=== PATIENT | male | born 2000 | race Hispanic/Latino ===

== ENCOUNTER 2024-03-07 18:01 | Inpatient (IN) | payer OTHER, SELFPAY ==
[2024-03-07] VITALS (11 sets, daily range): BP systolic 122–152; BP diastolic 90–110; BMI 34.3
--- NOTE | 2024-03-07 14:04 | ED.GENMED ---
History of Present Illness
General
Chief Complaint: Abdominal Symptoms
Source: patient
Exam Limitations: none
Time Seen by Provider: 03/07/24 13:59
History of Present Illness
History of Present Illness:
See MDM
Past History
Past History
ED Past Medical History: None
ED Past Surgical History: None
Social History
Tobacco: Non-smoker
Alcohol: None
Phy Exam
Physical Exam
Physical Exam:
See MDM
Course
Orders/Labs/Results
Orders:
Orders
03/07/24 13:53
Electrocardiogram (*1) Urgent
Reason for Study: Tachycardia
EKG- Treatment ONCE
03/07/24 14:02
CT Abd/pelvis W Iv Cont Urgent
Comment:
Reason For Exam: epigastric pain, vomiting
0.9% Sodium Chloride 1000 ml [Nss] 1,000 ml IV BOLUS
Ketorolac [Toradol] 30 mg IV NOW STA
Ondansetron Injectable [Zofran] 4 mg IV NOW STA
03/07/24 14:15
Complete Blood Count/With Diff Urgent
03/07/24 15:16
Basic Metabolic Panel Urgent
Lipase Urgent
03/07/24 16:04
0.9% Sodium Chloride 1000 ml [Nss] 1,000 ml IV BOLUS
03/07/24 16:05
Bedside Glucose- Treatment Q1H
IV Insert/Care/Rem.- Treatment PRN
Insulin Human Regular [Novolin R] 8 units IV NOW STA
03/07/24 16:08
Basic Metabolic Panel Q2H
03/07/24 18:15
Basic Metabolic Panel Q2H
03/07/24 20:15
Basic Metabolic Panel Q2H
Abnormal Lab Results
03/07/24 03/07/24 03/07/24
14:15 15:16 16:08
WBC 15.4 H 10^3/uL
(4.8-10.8)
RBC 6.29 H 10^6/uL
(4.70-6.10)
MCV 79.5 L fL
(80.0-94.0)
MPV 12.5 H fL
(7.4-10.4)
Abs Immat Gran (auto) 0.1 H 10^3/uL
(0-0.05)
Absolute Neuts (auto) 13.5 H 10^3/uL
(1.4-6.5)
Neutrophils % 87.3 H %
(42.2-75.2)
Lymphocytes % 8.3 L %
(20.5-51.1)
Carbon Dioxide 17 L mmol/L 19 L mmol/L
(22-30) (22-30)
BUN 25 H mg/dl 25 H mg/dl
(9-20) (9-20)
Creatinine 1.4 H mg/dL 1.5 H mg/dL
(0.7-1.3) (0.7-1.3)
Glucose 851 H* mg/dl 814 H* mg/dl
(70-99) (70-99)
Lipase > 4000 H* U/L
(23-300)
POC Glucose > 600 H* mg/dl
(70-99)
03/07/24 14:15
Vital Signs
Initial and Last Documented VS:
Initial Vital Signs
Temp Pulse Resp BP Pulse Ox
98.1 F 145 18 152/99 99
03/07/24 13:47 03/07/24 13:47 03/07/24 13:47 03/07/24 13:47 03/07/24 13:47
Last Documented Vital Signs
Temp Pulse Resp BP Pulse Ox
98.1 F 112 18 137/92 95
03/07/24 13:47 03/07/24 15:15 03/07/24 13:47 03/07/24 15:00 03/07/24 15:15
MDM/Problems Addressed
Differential Diagnosis Includes:
HPI and MDM Narrative:
23-year-old male presenting with mid upper abdominal pain since yesterday. He denies fevers. He is complaining of nausea and vomiting. He denies alcohol use. On exam, patient does have point tenderness in his epigastric region. Will give
Toradol and Zofran obtain CT to rule out intra-abdominal pathology
Physical exam
General: Mildly uncomfortable
HEENT: protecting airway. Dry mucous membranes
Neck: appears supple
CV: No evidence of cyanosis. Tachycardic
Resp: No accessory muscle use
Abd: Non-distended. Epigastric tenderness without rebound
Extremities: No deformities
Neuro: alert
Psych: Normal affect
Skin: Intact
Problems Addressed including Acute and Chronic Conditions affecting care:
1. Abdominal pain
Acuity: acute
Prognosis: stable
Details: Will give Toradol. Will obtain CT to rule out any infectious or surgical pathology
2. Nausea and vomiting
Acuity: acute
Prognosis: stable
Details: Will give Zofran and fluids
3. Hyperglycemia
Acuity: acute
Prognosis: stable
Details: Patient found to be new onset diabetes. Bicarb is greater than 13. Will continue IV fluids and give IV push of insulin after potassium level returns
Updates
Lipase greater than 4000. Patient found be hyperglycemic. Will treat as new onset diabetes. Bicarb is greater than 13 making DKA less likely. However, anion gap is elevated. The potassium did hemolyzed. Will hold off on given the insulin
pending the potassium
Case discussed with hospitalist. Will start insulin drip once potassium results
Patient found to have potassium level of 5. Will start insulin drip
Differential Diagnosis (but not limited to): Pancreatitis, gastritis, peptic ulcer disease
Testing considered: Abdominal ultrasound
Drug therapy (if applicable): OTC meds, please see d/c instruction regarding Rx drugs
Amount and/or Complexity of Data Reviewed
Clinical info obtained from: Patient
External data reviewed: N/A
Labs I independently reviewed (but not limited to): Elevated lipase, hyperglycemia
Radiology: The CT scan was personally and independently reviewed. In addition, official CT report reviewed.
Pulse Ox: not hypoxic
EKG independently reviewed: Sinus tachycardia, normal axis, no STEMI
Call Center Operations Manager: Sinus tachycardia
Critical Care: The high probability of a clinically significant, sudden or life threatening deterioration of the endocrine system(s) required my full and direct attention, intervention and personal management. The aggregate critical care time was 33
minutes. This time is in addition to time spent performing reported procedures but includes the following:
[x] Data Review and interpretation
[x] Patient assessment and monitoring of vital signs
[x] Documentation
[x] Medication orders and management
Risk of Complication:
Social Determinants of health: Good social support
Discussed with other providers: Hospitalist
Escalation of Care includes Admit/Obs: Given the hyperglycemia and pancreatitis, will admit
Occasional wrong word or 'sound a like' substitutions may have occurred due to the inherent limitations of voice recognition software. Read the chart carefully and recognize, using context, where substitutions have occurred.
*Critical Care Note
Total Time (30-74mins, 75-104mins- exclusive of procedures): 33 min
ED Attending Note
-
Portions of this chart may have been created with voice recognition software.� Occasional wrong word or��sound alike� substitutions may have occurred due to the inherent limitations of voice recognition software.
Discharge Plan
Departure
Patient Disposition: Admit
Date of Disposition: 03/07/24
Time of Disposition: 16:12
Admit to: Med/Surg
Presentation/result/management discussed w/ accepting MD/DO: Hospitalist
Discharge Problem:
Acute hyperglycemia, Acute pancreatitis
Prescriptions:
No Action
No Current Medications
0
Referrals:
NONE,* [Family Provider] -
Interventions
Interventions:
*Risk Screen - Suicide Last Done: 03/07/24 14:11
*General Assessment Last Done: 03/07/24 14:11
*Neglect/Abuse Screening Last Done: 03/07/24 14:11
ED- Fall Risk Assessment Last Done: 03/07/24 14:11
*ED COVID-19 Vaccine History Last Done: 03/07/24 14:11
RJ-Qqwfan-Nnadqldcio Assessment Last Done: 03/07/24 14:11
Discharge Date and Time
Print Language: PERSIAN
[2024-03-07] MEDS: ZOFRAN 4 MG IV (14:18)
[2024-03-07] MEDS: NSS 1000 IV ×2 (14:18→16:10)
[2024-03-07] MEDS: TORADOL 30 MG IV (14:18)
[2024-03-07 14:20] LABS: % Basophils 0.4 % (0-2); % Eosinophils 0.1 % (0-6); % Immature Granulocytes 0.5 % (0-0.5); % Lymphocytes 8.3 % (20.5-51.1); % Monocytes 3.4 % (1.7-9.3); % Neutrophils 87.3 % (42.2-75.2); Absolute Basophils 0.1 10^3/uL (0-0.2); Absolute Immature Granulocytes 0.1 10^3/uL (0-0.05); Absolute Lymphocytes 1.3 10^3/uL (1.2-3.4); Absolute Monocytes 0.5 10^3/uL (0.1-0.6); Absolute Neutrophils 13.5 10^3/uL (1.4-6.5); Hemoglobin 17.3 g/dL (13.0-18.0); Mean Corp Hgb Conc. 34.6 g/dL (33.0-37.0); Mean Corpuscular Hgb 27.5 pg (27.0-31.0); Mean Corpuscular Volume 79.5 fL (80.0-94.0); Mean Platelet Volume 12.5 fL (7.4-10.4); Nucleated Red Blood Cells % 0 % (-); Platelet Count 287 10^3/uL (130-400); Red Blood Cell Count 6.29 10^6/uL (4.70-6.10); Red Cell Dist. Width 14.1 % (11.5-14.5); White Blood Cell Count 15.4 10^3/uL (4.8-10.8)
[2024-03-07 15:40] LABS: Blood Urea Nitrogen 25 mg/dl (9-20); Calcium 8.4 mg/dl (8.4-10.2); Carbon Dioxide 17 mmol/L (22-30); Chloride 102 mmol/L (98-107); Sodium 142 mmol/L (135-145); eGFR > 60.00
[2024-03-07 16:03] LABS: Glucose 851 mg/dl (70-99)
[2024-03-07 16:04] LABS: Lipase > 4000 U/L (23-300)
[2024-03-07 16:09] LABS: Glucose - Point of Care > 600 mg/dl (70-99)
[2024-03-07 16:38] LABS: Blood Urea Nitrogen 25 mg/dl (9-20); Calcium 8.5 mg/dl (8.4-10.2); Carbon Dioxide 19 mmol/L (22-30); Chloride 100 mmol/L (98-107); Sodium 145 mmol/L (135-145); eGFR > 60.00
[2024-03-07 16:46] LABS: Glucose 814 mg/dl (70-99)
[2024-03-07] MEDS: NOVOLIN R 8 UNITS IV (16:51)
[2024-03-07] MEDS: NOVOLIN R INSULIN INFUSION 100 IV (17:41)
--- NOTE | 2024-03-07 17:51 | HPS.HSE ---
Family Physician
-
Family Physician: * NONE
Chief Complaint
-
polydipsia
History of Present Illness
A 23 year old male who started feeling an excessive sense of thirst from last Monday till today morning. The feeling has gotten progressively worse. He also went to the bathroom to urinate once an hour every single day from last Monday till today
morning from drinking excessive amounts of water. Constantly feels tired. In his words, no matter how much he drank, his lips and throat would feel dry. Today when he woke up, he started to feel pain in his right lower quadrant of his abdomen. The
pain is rated as a 5/10, and has radiated from the right to the left side of his abdomen. Associated with 1 episode of vomiting, patient stated that 'it is a lot of vomiting. Woke his partner up and was then driven to the emergency room. labs in
ED showed Lipase level was over 4000. WBC was elevated. Serum Glucose was 851. Calculated anion gap was 26. Patient was tachycardic. EKG was normal. CT scan of the abdomen showed acute pancreatitis with peripancreatic edema, and hepatomegaly
with diffuse fatty infiltration of the liver.
Medical History
Past Medical History
Past Medical History: Reports None
Past Surgical History: Reports None
Social History
Tobacco: Smoker (6 cigarettes' a day)
Alcohol: Occasional (6 bottles of beer every 2 months)
Drug: None
Personal: Single
Living: With Roomate
Employment: Employed
Family History
Family History: Not pertinent
Allergies / Home Medications
Allergies reflects when Allergies were last updated in [email or web address].
Home Medications with original date entered in [email or web address]
Allergy/Medication List:
Allergies
Allergy/AdvReac Type Severity Reaction Status Date / Time
No Known Allergies Allergy Unverified 03/07/24 13:52
Home Medications
No Meds [No Current Medications] 03/07/24
Review of Systems
-
History Source: Patient
Respiratory: Reports No Symptoms
Cardiac: Reports No Symptoms
Abdomen/GI: Reports Pain (both right and left epigastric region)
: Reports Frequency
Physical Exam
Vital Signs
Vital Signs
Temp Pulse Resp BP Pulse Ox
98.1 F 125 18 133/94 97
03/07/24 13:47 03/07/24 17:45 03/07/24 13:47 03/07/24 17:00 03/07/24 17:45
Physical Exam
General: Obese
HEENT: NormoCephalic and Anicteric
Respiratory: Clear
Cardiac: S1/S2, Regular Rhythm and Tachycardia
GI: Tender (both left and right epigastric region)
Musculoskeletal: No Clubbing, No Cyanosis and No Edema
Neuro: Awake, Alert, Oriented and AO x 3
Laboratory Results
-
03/07/24 14:15
Laboratory Results
Total Bilirubin Cancelled 03/07/24 15:16
AST Cancelled 03/07/24 15:16
ALT Cancelled 03/07/24 15:16
Alkaline Phosphatase Cancelled 03/07/24 15:16
Lipase > 4000 U/L (23-300) H* 03/07/24 15:16
Data Reviewed
-
Lab Data: Labs Reviewed by me and Discussed with Physician
Impression/Plan
-
IMPRESSION:
Diabetic Ketoacidosis:
Non acholic Fatty liver Secondary to diabetic ketoacidosis:
Leucocytosis:
Hypernatremia:
PLAN:
Diabetic Ketoacidosis:
- Patient was having more than a week of polyuria and polydipsia,
- tachycardic- 112
- Serum glucose levels were 851 on admission
- Anion gap calculated is 26
- Beta hydroxybutyrate- 4.62
- Patient transferred to ICU, NPO, started on IV insulin drip, IV fluids- .45% NaCl, pain medications as needed,
- ordered Consult with diabetes management by nurse practitioner, amylase, phosphorus, magnesium, lipase, triglycerides, CMP, CBC, in the a.m.
Acute Pancreatitis:
- CT scan showed extensive peripancreatic edema consistent with acute pancreatitis
- Lipase levels over 4000
- NPO, IV fluids, pain medications ordered
Fatty liver
Secondary to diabetic ketoacidosis
obesity?:
- CT of the abdomen pelvis with contrast showed hepatomegaly with diffuse fatty infiltration of the liver
- Maybe related to his BMI as he is obese with a BMI of 34
- continue to treat the diabetic ketoacidosis, and observe after repeat scan
Leucocytosis:
- wbc is 15.4
- Probably associated with the acute pancreatitis
- continue to observe and follow WBC
Hypernatremia:
- Na levels on admission was 149
- Corrected hypernatremia is 160 taking into account patients hyperglycemia
- Fluids given 0.45
[2024-03-07 18:27] LABS: Glucose - Point of Care 527 mg/dl (70-99)
[2024-03-07 19:00] LABS: B-Hydroxybutyrate 4.62 mmol/L (0.02-0.27); Blood Urea Nitrogen 25 mg/dl (9-20); Calcium 8.7 mg/dl (8.4-10.2); Carbon Dioxide 20 mmol/L (22-30); Estimated Creatinine Clearance 70 ml/min; Magnesium 2.7 mg/dl (1.6-2.3); eGFR > 60.00
[2024-03-07 19:09] LABS: Glucose 643 mg/dl (70-99)
[2024-03-07] MEDS: 0.45% NACL with KCL 20 MEQ 1000 IV ×2 (19:09→23:35)
[2024-03-07 19:15] LABS: Chloride 106 mmol/L (98-107); Potassium 4.6 mmol/L (3.5-5.1); Sodium 149 mmol/L (135-145)
--- NOTE | 2024-03-07 19:15 | PTCARENOTE ---
Received pt from ED RN, pt is Aox3, VSS, ST on monitor, c/o LUQ abdominal pain. Pt received on 8.4units of insulin, protocol changed to ICU DKA protocol where insulin was decreased to 6units based off BG. 1/2 NS w/ 20k infusing at 200ml/hr. Q4hour
BMPs. Lab draws for BG as well. skin is intact. new iv placed, #20 in left wrist.
[2024-03-07 19:45] LABS: Venous Blood Gas B.E. -1.7 mmol/L (-4 to +4); Venous Blood Gas HCO3 22.2 mmol/L (22-27); Venous Blood Gas pCO2 35 mmHg (35-48); Venous Blood Gas pH 7.41 (7.32-7.43); Venous Blood Gas pO2 140 mmHg (30-50)
[2024-03-07 19:55] LABS: INR 1.06; PT 13.8 Sec (11.4-14.6)
[2024-03-07 19:56] LABS: APTT 23.4 Sec (23.4-35.0)
[2024-03-07 19:59] LABS: Blood Urea Nitrogen 23 mg/dl (9-20); Calcium 8.6 mg/dl (8.4-10.2); Carbon Dioxide 18 mmol/L (22-30); Chloride 110 mmol/L (98-107); Estimated Creatinine Clearance 75 ml/min; Glucose 594 mg/dl (70-99); Potassium 4.1 mmol/L (3.5-5.1); Sodium 148 mmol/L (135-145); eGFR > 60.00
[2024-03-07] MEDS: DILAUDID 0.5 MG IV (21:07)
[2024-03-07] MEDS: LOVENOX 40 MG SC (21:07)
[2024-03-07 21:09] LABS: Blood Urea Nitrogen 23 mg/dl (9-20); Calcium 8.6 mg/dl (8.4-10.2); Carbon Dioxide 20 mmol/L (22-30); Chloride 111 mmol/L (98-107); Estimated Creatinine Clearance 81 ml/min; Glucose 506 mg/dl (70-99); Potassium 4.4 mmol/L (3.5-5.1); Sodium 149 mmol/L (135-145); eGFR > 60.00
[2024-03-07 21:59] LABS: Blood Urea Nitrogen 23 mg/dl (9-20); Calcium 8.4 mg/dl (8.4-10.2); Carbon Dioxide 20 mmol/L (22-30); Chloride 111 mmol/L (98-107); Estimated Creatinine Clearance 75 ml/min; Glucose 474 mg/dl (70-99); Potassium 4.5 mmol/L (3.5-5.1); Sodium 149 mmol/L (135-145); eGFR > 60.00
[2024-03-07 22:59] LABS: Blood Urea Nitrogen 23 mg/dl (9-20); Calcium 8.5 mg/dl (8.4-10.2); Carbon Dioxide 21 mmol/L (22-30); Chloride 111 mmol/L (98-107); Estimated Creatinine Clearance 81 ml/min; Glucose 424 mg/dl (70-99); Potassium 4.6 mmol/L (3.5-5.1); Sodium 147 mmol/L (135-145); eGFR > 60.00
[2024-03-08] VITALS (23 sets, daily range): BP systolic 116–150; BP diastolic 75–103; BMI 34.3
[2024-03-08 00:03] LABS: Blood Urea Nitrogen 23 mg/dl (9-20); Calcium 8.5 mg/dl (8.4-10.2); Carbon Dioxide 22 mmol/L (22-30); Chloride 112 mmol/L (98-107); Estimated Creatinine Clearance 81 ml/min; Glucose 389 mg/dl (70-99); Potassium 4.6 mmol/L (3.5-5.1); Sodium 146 mmol/L (135-145); eGFR > 60.00
--- NOTE | 2024-03-08 00:30 | PTCARENOTE ---
Assessment unchanged, Prn medications for abdominal pain, remains on IVF and insulin gtt.
[2024-03-08] MEDS: DILAUDID 0.5 MG IV ×4 (00:39→21:41)
[2024-03-08 00:48] LABS: Glucose - Point of Care 317 mg/dl (70-99)
[2024-03-08 01:46] LABS: Glucose - Point of Care 299 mg/dl (70-99)
[2024-03-08 02:47] LABS: Glucose - Point of Care 297 mg/dl (70-99)
[2024-03-08 03:58] LABS: Glucose - Point of Care 277 mg/dl (70-99)
[2024-03-08 04:01] LABS: Venous Blood Gas B.E. -1.1 mmol/L (-4 to +4); Venous Blood Gas HCO3 24.3 mmol/L (22-27); Venous Blood Gas O2 Sat % 99.6 %; Venous Blood Gas pCO2 42 mmHg (35-48); Venous Blood Gas pH 7.37 (7.32-7.43); Venous Blood Gas pO2 116 mmHg (30-50)
[2024-03-08 04:03] LABS: Hematocrit 54.6 % (39.0-52.0); Hemoglobin 18.6 g/dL (13.0-18.0); Mean Corp Hgb Conc. 34.1 g/dL (33.0-37.0); Mean Corpuscular Hgb 28.1 pg (27.0-31.0); Mean Corpuscular Volume 82.6 fL (80.0-94.0); Mean Platelet Volume 11.8 fL (7.4-10.4); Platelet Count 272 10^3/uL (130-400); Red Blood Cell Count 6.61 10^6/uL (4.70-6.10); Red Cell Dist. Width 13.9 % (11.5-14.5)
[2024-03-08] MEDS: 0.45% NACL with KCL 20 MEQ 1000 IV ×3 (04:34→15:30)
[2024-03-08 04:41] LABS: ALT (SGPT) 56 U/L (0-50); AST (SGOT) 39 U/L (17-59); Albumin 3.2 g/dl (3.5-5.0); Alkaline Phosphatase 143 U/L (38-126); Amylase 942 U/L (30-110); Blood Urea Nitrogen 23 mg/dl (9-20); Calcium 8.2 mg/dl (8.4-10.2); Carbon Dioxide 20 mmol/L (22-30); Chloride 115 mmol/L (98-107); Estimated Creatinine Clearance 81 ml/min; Glucose 332 mg/dl (70-99); Magnesium 2.7 mg/dl (1.6-2.3); Phosphorus 3.1 mg/dl (2.5-4.5); Potassium 4.9 mmol/L (3.5-5.1); Sodium 149 mmol/L (135-145); Total Bilirubin 0.9 mg/dl (0.2-1.3); Total Protein 6.6 g/dl (6.3-8.2); Triglycerides 402 mg/dl (10-149); eGFR > 60.00
[2024-03-08 04:45] LABS: Glucose - Point of Care 299 mg/dl (70-99)
[2024-03-08 04:52] LABS: Lipase > 4000 U/L (23-300)
[2024-03-08] MEDS: LOPRESSOR 2.5 MG IV (05:01)
--- NOTE | 2024-03-08 05:05 | PTCARENOTE ---
Pt with persistent ST 130 and elevated BP, 1x dose 2.5mg metoprolol. HR improved to 108. little improvement in BP.
[2024-03-08 05:48] LABS: Glucose - Point of Care 296 mg/dl (70-99)
[2024-03-08] MEDS: NOVOLIN R INSULIN INFUSION 100 IV (06:30)
[2024-03-08 06:43] LABS: Glucose - Point of Care 283 mg/dl (70-99)
--- NOTE | 2024-03-08 07:35 | PN.DE.MGMTRT ---
Insulin Management
- -
03/08/2024: Diabetes Management Consult.
23 year old male with no PMH, who presented to the ED with progressive polydipsia and polyuria associated with abd pain and vomiting.
Serum Glucose on admission was 851, he was noted for DKA with a GAP if 26 and acute pancreatitis with hepatomegaly and diffuse fatty infiltration of the liver.
Pt was started on DKA protocol and transferred to the ICU for management. AC 13.1%, Cr 1.4-->1.3, eGFR >60.
Pt awake, A/O x3, resting in bed, c/o diffuse abdominal pain. Denies N/V. Able to discuss diabetes plan of care
states he has never been sick or in a hospital. He reports no family hx of diabetes- Dad is and Mom lives out of the [place].
GAP still open and pt remains NPO on DKA protocol with glucose range of 277 to 299 requiring 4 units of insulin/hr.
Will cont current treatment plan with DKA Protocol and closely follow and assess for readiness to transition off drip.
Pt will require extensive diabetes education- Monitor instructions and insulin administration- he is not ready for education today, will attempt on Monday.
Diabetes History
- -
Type of Diabetes: 2 requiring insulin
Pre-Admission Diabetes Regimen
03/07/24 03/07/24 03/07/24
14:15 14:44 15:16
Creatinine Cancelled Cancelled 1.4 H
03/07/24 03/07/24 03/07/24
16:08 18:26 19:36
Creatinine 1.5 H 1.5 H 1.4 H
03/07/24 03/07/24 03/07/24
20:15 20:49 21:36
Creatinine Cancelled 1.3 1.4 H
03/07/24 03/07/24 03/08/24
22:38 23:34 00:00
Creatinine 1.3 1.3 Cancelled
03/08/24 03/08/24
03:51 04:00
Creatinine 1.3 Cancelled
Insulin Pump Settings
IP Diabetes Regimen
03/07/24 03/07/24 03/07/24
14:15 14:44 15:16
Glucose Cancelled Cancelled 851 H*
POC Glucose
03/07/24 03/07/24 03/07/24
16:08 18:26 19:36
Glucose 814 H* 643 H* 594 H*
POC Glucose > 600 H* 527 H*
03/07/24 03/07/24 03/07/24
20:15 20:49 21:36
Glucose Cancelled 506 H* 474 H*
POC Glucose
03/07/24 03/07/24 03/08/24
22:38 23:34 00:00
Glucose 424 H 389 H Cancelled
POC Glucose
03/08/24 03/08/24 03/08/24
00:36 01:35 02:36
Glucose
POC Glucose 317 H 299 H 297 H
03/08/24 03/08/24 03/08/24
03:47 03:51 04:00
Glucose 332 H Cancelled
POC Glucose 277 H
03/08/24 03/08/24 03/08/24
04:34 05:37 06:33
Glucose
POC Glucose 299 H 296 H 283 H
Patient Education
--- NOTE | 2024-03-08 07:39 | CON.INTV ---
Consultation
Consultation Request
Date/Time Consultation Requested: 03/08/2024-7 AM
Date/Time Consultation Performed: 03/08/2024-7 30 AM
Requesting Provider: Hospitalist
Performing Provider: Dr. Gallagher
Reason for Consultation: Pancreatitis/DKA/critical care management
Medical History
-
Chief Complaint: DKA/pancreatitis
History of Present Illness:
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
DKA/pancreatitis/critical care management 03/08/2024. Patient states that he is feeling improved but still thirsty. He has significant abdominal pain as well. Abdominal pain started several days ago. He had 1 episode of emesis. He denies any
shortness of breath, chest pain, chest tightness, mucus, productive cough, and has mild nausea but no emesis since admission. Does not complain of any weakness, or lower extremity swelling.
Past Medical History
Past Medical History: None (Denies any CAD, pulmonary, renal, gastrointestinal or diabetes in the past)
Social History
Tobacco: Former Smoker (Quit 1 month ago)
Alcohol: Occasional (Less than 6 beers monthly)
Drug: None
Living: With [facility]
Occupational Exposures: No known asbestos exposure
Environmental Exposures: No known tuberculosis exposure
Family History
Family History: Reviewed & Not Pertinent
Allergies / Home Medications
Allergies
Allergy/AdvReac Type Severity Reaction Status Date / Time
No Known Allergies Allergy Unverified 03/07/24 13:52
Home Medications
�Medication �Instructions �Recorded �Confirmed �Last Taken �Type
No Meds [No Current Medications] 03/07/24 03/07/24 Unknown History
Review of Systems
-
Unable to Obtain full review of systems at this time due to: Other (Per HPI)
Vitals / Labs / Diagnostic Testing
Vital Signs
Temp Pulse Resp BP Pulse Ox
98.8 F 134 27 120/100 96
03/08/24 01:40 03/08/24 05:01 03/08/24 05:00 03/08/24 05:01 03/08/24 05:00
Lab Data
03/08/24 03:51
03/08/24 04:00
Laboratory Results
03/07/24
19:36
PT 13.8
INR 1.06
APTT 23.4
Diagnostic Testing:
Physical Exam
-
Exam:
Well-nourished and well-developed in no apparent distress
HEENT-atraumatic, normocephalic, thick neck
Neck-supple, no JVD, no bruit
Heart-regular rate and rhythm-no murmurs, rubs or gallops
Chest-clear to auscultation, no wheezes, crackles
Abdomen-soft, mildly distended, epigastric pain with some guarding but no rebound
Extremities-no cyanosis, clubbing, edema and good peripheral pulses
Integument-intact, no rashes, lesions or ecchymosis
Neurology-alert and oriented, nonfocal motor and sensory exam
Assessment
-
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
DKA/pancreatitis/critical care management 03/08/2024.
DKA-initial blood sugar 851, anion gap 23
Severe pancreatitis-lipase greater than 4000, amylase 942
Transaminitis
Hypernatremia
Metabolic acidosis/ketoacidosis
Leukocytosis
Polycythemia-suspect hemoconcentration-hemoglobin 18.6
Obesity-BMI 34
Fatty infiltration of liver
Conditions present prior to admission:
Obesity-BMI 34
Denies any CAD, pulmonary, renal, gastrointestinal or diabetes in the past
Plan
Patient will be admitted to medical intensive care unit
Supplemental oxygen as needed
Aspiration precautions
Incentive spirometry
Nebulizers if needed
NPO
Follow lipase
CT abdomen summarized below
Consider MRI
GI evaluation pending
Analgesia as needed-monitor for oversedation
Follow LFTs
Consider eovjaojckw-gmnwfipzph-xoglldstfp, biliary sludge, periampullary diverticulum, pancreatic or ampullary cancer, ampullary stenosis, duodenal stricture or obstruction
Consider toxic-ethanol, methanol, scorpion venom, organophosphate poisoning, Consider dbhyusapu-ggzmxmcrrhtzzl-berw I, 4, 5, and hypercalcemia, Consider drugs-didanosine, pentamidine, metronidazole, thiazide, tetracycline,stibogluconate,
sulfasalazine, L-aspartate, azathioprine, valproic acid, sulindac, aspirin, calcium, estrogen, Consider jvrpvjwkvv-jgpyvlz-dtswr, coxs[place]ie, CMV, varicella, HSV, HIV, bacterial, fungal or parasitic, Consider trauma-blunt or penetrating, or
iatrogenic during ERCP, Consider congenital, Consider vascular-ischemia, atheroembolic, vasculitis, Consider tckzmpidxaudu-vefr-JZLU, , renal transplantation, alpha-1 antitrypsin deficiency and consider genetic on rare occasions
Fluid qikkaikcavstl-zlmo-hlwujohd therapy
Aggressive fluid resuscitation if tolerated in the first 24-48 hours-can minimize renal ATN
Pressors as needed
Pain control-Meperidine favored over morphine for analgesia as morphine can cause increase in sphincter of Oddi pressure
Monitor blood sugar
Monitor anion gap
Insulin drip
Check A1c if not done in the last 3 months
Diabetic nurse practitioner consultation
Intravenous fluid resuscitation
Monitor potassium closely and replace appropriately
Nutrition-consider TPN
Monitor for infection
Prophylactic antibiotics are not recommended initially unless infection is suspected
Consider Pentoxifyline-Some studies of shown treatment had fewer ICU admissions, and reduced hospital stay
Monitor renal function
Consider nephrology evaluation if worsens
Follow hemoglobin-if remains elevated after euvolemia and consider polycythemia workup
Monitor leukocytosis
Follow LFTs
DVT prophylaxis-on Lovenox
Nutrition once pancreatitis improves, consider TPN
Early mobilization
Eventual outpatient sleep disorder breathing/obstructive sleep apnea workup
Critical care statement: A total of 65 minutes of critical care time was provided for this patient today. This includes management of unstable vital signs, evaluation of the patient at bedside, reviewing the patient's pertinent medical records
including radiographs, microbiology, laboratory evaluations, and discussion with primary team, consultants, pharmacy, charge nurse, critical care nursing, and respiratory therapy.
Diagnostic data:
Chest x-ray 03/07/2024-NAD
CT abdomen and pelvis 03/07/2024-acute pancreatitis with extensive peripancreatic edema, hepatomegaly with diffuse fatty infiltration of the liver, no abnormal pancreatic masses or calcifications, gallbladder was normal
Data Reviewed
-
EKG: Report reviewed by me
Radiology: Report reviewed by me
CT Scan: Report reviewed by me
Labs: Labs reviewed by me
Old Records: Reviewed
Critical Care Time (in minutes): 65
[2024-03-08 07:46] LABS: Glucose - Point of Care 286 mg/dl (70-99)
[2024-03-08 08:47] LABS: Glucose - Point of Care 344 mg/dl (70-99)
--- NOTE | 2024-03-08 09:00 | PTCARENOTE ---
Rec'd care of patient at 0700. Patient alert and oriented. Primarily Albanian speaking, but able to communicate in Beninese. No manager women needed at current time. Vitals stable. Afebrile. ST on tele monitor. Rate in the 120's. Pulse ox 93-94% on RA.
Lung sounds shallow, diminished in b/l base. Tachypneic. C/o pain across entire upper quadrant of abdomen. Firm and tender. +BS in all quadrants (hypoactive). PRN Dilaudid for pain management. Voiding via urinal and bathroom. Ambulating in room
without difficulty. Insulin and IVFs infusing as ordered. Q1hr accuchecks. Orders obtained for Q4 BMP.
[2024-03-08 09:03] LABS: Glycohemoglobin (HgbA1c) 13.1 % (4.0-5.6)
[2024-03-08 09:39] LABS: Glucose - Point of Care 332 mg/dl (70-99)
[2024-03-08 10:06] LABS: Blood Urea Nitrogen 23 mg/dl (9-20); Calcium 7.7 mg/dl (8.4-10.2); Carbon Dioxide 18 mmol/L (22-30); Chloride 116 mmol/L (98-107); Estimated Creatinine Clearance 88 ml/min; Glucose 334 mg/dl (70-99); Potassium 4.9 mmol/L (3.5-5.1); Sodium 146 mmol/L (135-145); eGFR > 60.00
[2024-03-08 10:42] LABS: Glucose - Point of Care 326 mg/dl (70-99)
--- NOTE | 2024-03-08 11:04 | CON.GI ---
Addendum entered and electronically signed by Matthias Smith DO 03/08/24 13:11:
I saw and examined the patient.
The MANUFACTURING MANAGEMENT ASSOCIATE's note was reviewed and I agree with the note.
Comment: This is a 23 y.o male from [facility] with no significant past medical history who presented to the ED with polydipsia, polyuria, subjective chills and acute epigastric abdominal pain found to have DKA and CT imaging with acute pancreatitis
with extensive edema and hepatomegaly. Denied any significant EtOH use or new medications. No prior symptoms like this before in the past or prior episodes of pancreatitis. No family hx of pancreatitis or family history of pancreatic disorders
and/or pancreatic malignancy. Etiology of acute pancreatitis due to DKA and xuwy-yh-hsvileeh elevated TGs (400s) from new-onset diabetes with A1c 13.1%. Much less likely stone/biliary cause as without any stones or sludge on CT but would benefit
from US gallbladder to ensure no stones or sludge. Has received nearly 6L of IVF and further would avoid further aggressive IV fluid resuscitation (as per recent RCT- Waterfall trial) to avoid complications (ie pulmonary edema, abdominal compartment
syndrome, etc). Otherwise, no evidence of complications as without any pseudoaneurysm, leona-pancreatic fluid collections or necrosis.
Recommendations:
- Reduce IVF to 100 cc's per hr to avoid volume overload
- Agree with Insulin gtt for DKA management
- Okay for CLD and may ADAT to low-fat diet once able to tolerate p.o as earlier enteral feedings have been shown to have improved outcomes
- Trend serial LFTs. Obtain viral hepatitis serologies, although suspect mild elevations in transaminases due to MASLD
- Obtain US Gallbladder to r/o stones and/or sludge
- Miralax 17 gm BiD and senna qhs for bowel regimen for prevention of ileus
- Limit opioids as much as possible to prevent further worsening bowel dysmotility
- Consider Endocrinology consultation this admission
- Rest of supportive care as per primary ICU team
Original Note:
Consultation
-
Date/Time Consultation Requested: 03/08/24 0920
Date/Time Consultation Performed: 03/08/24 1030
Requesting Provider: Dr Rubio
Performing Provider: Dr. Smith/TAVO Castro
Reason for Consultation: pancreatitis
Medical History
Chief Complaint / HPI
Chief Complaint: abd pain
History of Present Illness:
23-year-old male from 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
1 week history of polydipsia, frequent urination, sweats, chills and finally acute abdominal pain in the periumbilical region. This pain was associated with nausea and 1 episode of vomiting. The patient was found to have DKA with anion gap 23,
glucose greater than 851, lipase greater than 4000 and triglycerides of 402. Asked to evaluate for pancreatitis. The patient states he has never had any medical issues before. He states that he went up to [facility] last week and started
noticing that he was increasingly thirsty. He started drinking a lot of water at that time as well as increased urination. He developed acute onset of abdominal pain which he points to the periumbilical region and he states that it was 'tight'.
He states he did feel hot so he took 1 Advil. He has never taken this before. He does smoke cigarettes. He drinks approximately 6 beers every 1 to 2 months. The last time he drank any alcohol was approximately 1 month ago. He does not use any
illicit drugs. He denies any tattoos, piercings or IV drug use. He does point to 1 area of branding on his left hand. He denies any family history of GI issues. Including malignancy or pancreatitis. He denies any melena, hematochezia, dysphagia
or odynophagia. No early satiety or unintentional weight loss. His bowel movements are soft formed regular daily. His last bowel movement yesterday and it was light brown. On presentation WBC 15.4 currently 12.0, hemoglobin was 17.3 now 18.6,
platelets 272,, PT 13.8, INR 1.06, sodium 146, potassium 4.9, chloride 116, CO2 18, BUN 23, creatinine 1.2 down from 1.4, glucose 334, calcium 7.7, total bilirubin 0.9, AST 39, ALT 56, alk phos 143, triglycerides 402, amylase 942, lipase greater
than 4000. CT abdomen and pelvis with IV contrast 03/07/2024 shows acute pancreatitis with extensive peripancreatic edema. Hepatomegaly with diffuse fatty liver.
Past Medical History
Past Medical History: None
Past Surgical History: None
Social History
Tobacco: Smoker
Alcohol: Occasional
Drug: None
Personal: Single
Living: With Roomate
Employment: Employed
Family History
Family History: Other (No family history of gastrointestinal malignancy, IBD or pancreatitis)
Allergies / Home Medications
Allergy/AdvReac Type Severity Reaction Status Date / Time
No Known Allergies Allergy Unverified 03/07/24 13:52
�Medication �Instructions �Recorded
No Meds [No Current Medications] 03/07/24
Review of Systems
-
All other systems: A 12 pt ROS was Negative except as stated above in HPI
Vital Signs
Temp Pulse Resp BP Pulse Ox
99.1 F 130 25 119/83 92
03/08/24 07:58 03/08/24 10:00 03/08/24 10:00 03/08/24 10:00 03/08/24 10:00
Physical Exam
Exam
General: Other (Patient appears ill, tachypnea, tachycardia)
HEENT: Anicteric
Respiratory: Clear and Other (Tachypnea)
Cardiac: Regular Rhythm (Tachycardia)
GI: Soft, Normal Bowel Sounds (Hypoactive), Tender (Mild periumbilical tenderness) and Distended
Musculoskeletal: No Edema
Skin: Warm and Dry
Neuro: AO x 3
Psych: Calm
Results
WBC 12.0 10^3/uL (4.8-10.8) H 03/08/24 03:51
Hgb 18.6 g/dL (13.0-18.0) H 03/08/24 03:51
Hct 54.6 % (39.0-52.0) H 03/08/24 03:51
MCV 82.6 fL (80.0-94.0) 03/08/24 03:51
Plt Count 272 10^3/uL (130-400) 03/08/24 03:51
Absolute Neuts (auto) 13.5 10^3/uL (1.4-6.5) H 03/07/24 14:15
PT 13.8 Sec (11.4-14.6) 03/07/24 19:36
INR 1.06 03/07/24 19:36
APTT 23.4 Sec (23.4-35.0) 03/07/24 19:36
Sodium 146 mmol/L (135-145) H 03/08/24 09:13
Potassium 4.9 mmol/L (3.5-5.1) 03/08/24 09:13
Chloride 116 mmol/L (98-107) H 03/08/24 09:13
Carbon Dioxide 18 mmol/L (22-30) L 03/08/24 09:13
BUN 23 mg/dl (9-20) H 03/08/24 09:13
Creatinine 1.2 mg/dL (0.7-1.3) 03/08/24 09:13
Calcium 7.7 mg/dl (8.4-10.2) L 03/08/24 09:13
Total Bilirubin 0.9 mg/dl (0.2-1.3) 03/08/24 03:51
AST 39 U/L (17-59) 03/08/24 03:51
ALT 56 U/L (0-50) H 03/08/24 03:51
Alkaline Phosphatase 143 U/L (38-126) H 03/08/24 03:51
Amylase 942 U/L (30-110) H* 03/08/24 03:51
Lipase > 4000 U/L (23-300) H* 03/08/24 03:51
Diagnostic Image Results:
CT abdomen and pelvis with IV contrast 03/07/2024:
IMPRESSION:
1). Acute pancreatitis with extensive peripancreatic edema
2). Hepatomegaly with diffuse fatty infiltration of the liver
Electronically signed by Grady Mei MD, 03/07/2024 4:11 PM
Prior GI Procedures:
EGD: Never
Colonoscopy: Never
Assessment / Plan
-
23-year-old male from 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
1 week history of polydipsia, frequent urination, sweats, chills and finally acute abdominal pain in the periumbilical region. This pain was associated with nausea and 1 episode of vomiting. The patient was found to have DKA with anion gap 23,
glucose greater than 851, lipase greater than 4000 and triglycerides of 402. Asked to evaluate for pancreatitis. denies any melena, hematochezia, dysphagia or odynophagia. No early satiety or unintentional weight loss. His bowel movements are
soft formed regular daily. His last bowel movement yesterday and it was light brown. On presentation WBC 15.4 currently 12.0, hemoglobin was 17.3 now 18.6, platelets 272, PT 13.8, INR 1.06, sodium 146, potassium 4.9, chloride 116, CO2 18, BUN 23,
creatinine 1.2 down from 1.4, glucose 334, calcium 7.7, total bilirubin 0.9, AST 39, ALT 56, alk phos 143, triglycerides 402, amylase 942, lipase greater than 4000. CT abdomen and pelvis with IV contrast 03/07/2024 shows acute pancreatitis with
extensive peripancreatic edema. Hepatomegaly with diffuse fatty liver. The patient continues on an insulin drip. He has received over 5 L of IV fluids. The patient is tachycardic and tachypneic at this time. He remains in ICU for close
monitoring.
Impression/Plan:
DKA/new Dx DM--as per IM/Linter Tender/Diabetic Management
Pancreatitis
--Triglyceride elevation of 400, however should decrease with insulin gtt. No role for pheresis.
--Will check US abd to r/o gallstones, CT was negative and patient was having sx of DM prior to onset of abd pain
--Need to repeat CBC to ensure that Hgb/Hct is decreasing as this increased from presentation.
--Patient with over 5 L fluid in past 24 hrs, currently at 200 cc hr. With tachycardia, tachypnea and abd distention and O2 sat of 92 would have concern for fluid overload and possible compartment syndrome, will reach out to multiple cut off saw operator to
discuss.
--Add incentive spirometer.
--Strict I&O
--NPO except po meds
--Continue analgesia
--Bowel regimen, Miralax
--CBC, CMP, Lipase, CRP in am
--Further recommendations to be forthcoming
-
-
Thank you for consultation and allowing me to participate in the patient's care. Please call the production painter GI physician during the after hours with any questions or concerns.
--- NOTE | 2024-03-08 11:27 | CM ---
CM reviewed medical records. CM met with patient in room. Of note, patient was on phone with Nellie from [facility].
Patient stated that he does not have a history of any services. He currently is employed but does not have insurance. CM provided patient with written information on [facility] and residency clinic.
CM will follow for needs.
[2024-03-08 11:49] LABS: Glucose - Point of Care 310 mg/dl (70-99)
[2024-03-08 12:44] LABS: Glucose - Point of Care 318 mg/dl (70-99)
[2024-03-08 12:57] LABS: Hematocrit 53.4 % (39.0-52.0); Hemoglobin 17.8 g/dL (13.0-18.0); Mean Corp Hgb Conc. 33.3 g/dL (33.0-37.0); Mean Corpuscular Hgb 27.3 pg (27.0-31.0); Mean Corpuscular Volume 81.8 fL (80.0-94.0); Mean Platelet Volume 12.1 fL (7.4-10.4); Platelet Count 270 10^3/uL (130-400); Red Blood Cell Count 6.53 10^6/uL (4.70-6.10); Red Cell Dist. Width 14.3 % (11.5-14.5); White Blood Cell Count 12.1 10^3/uL (4.8-10.8)
[2024-03-08] MEDS: DILAUDID 1 MG IV ×2 (13:06→17:45)
--- NOTE | 2024-03-08 13:19 | W.PN.UPDATE ---
Update Note
Progress Note Update
Seen and examined by me independently in collaboration with the chief medical physicist.
Lab data and imaging data reviewed.
Addendum as below :
Patient with still persistent abdominal pain. Nauseous and had emesis as well. No diarrhea. No fevers. Denies shortness of breath.
Afebrile. Tachycardic. Blood pressure okay. Oxygenating well on room air.
Abdomen soft with hypoactive bowel sounds and still with exquisite tenderness in the epigastric and upper abdomen area.
chest is clear.
Alert and oriented. No confusion.
New onset of diabetes mellitus presenting with episode of DKA-currently on IV insulin. Await anion gap to be closed. Keep on n.p.o. with sips of clears for now.
Acute pancreatitis of unclear etiology. I doubt this is secondary to DKA. When checked his triglycerides are high but not too high to precipitate pancreatitis-. Based on the history to think alcohol is playing a role. No gallbladder disease.
Consult GI for further evaluation. CW current rate of IV fluids and pain medications.
Scattered fatty liver with elevated triglycerides which I suspect secondary to uncontrolled diabetes mellitus. His hemoglobin A1c is 13.1. Repeat triglycerides once he is on insulin and the sugars are better. Hold on any specific treatments for
triglyceridemia for now.
Watch for complications of acute pancreatitis.
WAYNE RN
Total time spent on today's encounter was 52 minutes which included time spent in counseling the patient regarding diagnosis and treatment plan as listed above, goals of care, and symptom management. Case was discussed with nursing staff,
specialists All labs and imaging personally reviewed by me. Remainder the time spent in detailed review of previous records, lab data, imaging, and other medical provider documentation.
[2024-03-08 13:22] LABS: Blood Urea Nitrogen 22 mg/dl (9-20); Calcium 7.8 mg/dl (8.4-10.2); Carbon Dioxide 23 mmol/L (22-30); Chloride 113 mmol/L (98-107); Estimated Creatinine Clearance 81 ml/min; Glucose 300 mg/dl (70-99); Sodium 148 mmol/L (135-145); eGFR > 60.00
--- NOTE | 2024-03-08 13:30 | PTCARENOTE ---
Patient reassessed around 1230. Minor changes. HR sustaining in the 130's on tele monitor; ST. Increased dose of Dilaudid administered for abdominal pain. HR unimproved with pain relief. Patient remains afebrile. VSS. Engraver Block notified on HR. ABD
US placed by GI.
[2024-03-08 13:44] LABS: Glucose - Point of Care 269 mg/dl (70-99)
[2024-03-08 14:38] LABS: Glucose - Point of Care 242 mg/dl (70-99)
[2024-03-08 15:39] LABS: Glucose - Point of Care 257 mg/dl (70-99)
--- NOTE | 2024-03-08 16:34 | W.PN.HOSP.TC ---
Today's Communication/Plan
-
f/u with GI
continue to monitors patients glucose levels and electrolytes
Assessment / Plan
Assessment / Plan
Diabetic Ketoacidosis:
- Continue on insulin drip and IV fluids (03/08)
- Replete potassium if low (03/08)
- Anion gap is calculated at 15 ( 03/08)
- Hemoglobin A1c is 13.1
- tachycardic- 127
- Patient was having more than a week of polyuria and polydipsia,
- Serum glucose levels were 851 on admission
- Beta hydroxybutyrate- 4.62
- Patient transferred to ICU, NPO, started on IV insulin drip, IV fluids- .45% NaCl, pain medications as needed,
- ordered Consult with diabetes management by nurse practitioner, amylase, phosphorus, magnesium, lipase, triglycerides, CMP, CBC, in the a.m.
Acute Pancreatitis:
- Continue NPO, IV fluids, pain medications ordered (03/08)
- GI consult (03/08)
- Triglycerides are 400 which should decrease with the administration of insulin
- Continue with pain medications
- Watch for signs and symptoms of the complications of acute pancreatitis
- CT scan showed extensive peripancreatic edema consistent with acute pancreatitis
- Lipase levels over 4000 on admission
Fatty liver
Secondary to diabetic ketoacidosis
obesity?:
- CT of the abdomen pelvis with contrast showed hepatomegaly with diffuse fatty infiltration of the liver
- Maybe related to his BMI as he is obese with a BMI of 34
- continue to treat the diabetic ketoacidosis, and observe after repeat scan
Leucocytosis:
- wbc is 12.1 (03/08)- downtrending from admission
- Probably associated with the acute pancreatitis
- continue to observe and follow WBC
Hypernatremia:
- Na levels on admission was 149
- Corrected hypernatremia is 160 on admission taking into account patients hyperglycemia
- Fluids given 0.45
Anticipated Discharge: 24 - 48 hours
Subjective/Interval History
-
Date of Service: March 08, 2024
Patient is still complaining of abdominal epigastric pain. He had 2 episodes of vomiting last night.
Objective Data
-
Labs:
Laboratory Results
03/08/24 03/08/24 03/08/24
03:51 09:13 12:46
WBC 12.1 H
Hgb 17.8
Hct 53.4 H
Plt Count 270
Sodium 149 H 146 H 148 H
Potassium 4.9 4.9 5.0
Chloride 115 H 116 H 113 H
Carbon Dioxide 20 L 18 L 23
BUN 23 H 23 H 22 H
Creatinine 1.3 1.2 1.3
Glucose 332 H 334 H 300 H
Calcium 8.2 L 7.7 L 7.8 L
Total Bilirubin 0.9
AST 39
ALT 56 H
Alkaline Phosphatase 143 H
03/08/24 03/08/24
17:05 21:05
WBC
Hgb
Hct
Plt Count
Sodium Pending Pending
Potassium Pending Pending
Chloride Pending Pending
Carbon Dioxide Pending Pending
BUN Pending Pending
Creatinine Pending Pending
Glucose Pending Pending
Calcium Pending Pending
Total Bilirubin
AST
ALT
Alkaline Phosphatase
Vital Signs:
Vital Signs
Temp Pulse Resp BP Pulse Ox
98.6 F 127 21 141/92 98
03/08/24 15:50 03/08/24 15:00 03/08/24 15:00 03/08/24 15:00 03/08/24 15:00
I&O
03/07/24 03/08/24 03/09/24
06:59 06:59 06:59
Intake Total 8569 / 2873 1795 / 1795
Output Total 425 / 425 225 / 225
Balance 2244 / 2448 1570 / 1570
Review of Systems
-
History Source: Patient
Constitutional: Reports Other (polydipsia)
Abdomen/GI: Reports Abdominal Pain
Physical Exam
-
General: Obese
HEENT: Normocephalic and Anicteric
Respiratory: Clear to Auscultation
Cardiac: Regular Rhythm, S1/S2 and Tachycardic
GI: Tender (Both left and right epigastric region)
Musculoskeletal: No Clubbing, No Cyanosis and No Edema
Neuro: Awake, Alert, Oriented and AO x 3
Data Reviewed
-
Labs: Labs Reviewed by me and Discussed with Physician
[2024-03-08 16:37] LABS: Glucose - Point of Care 255 mg/dl (70-99)
--- NOTE | 2024-03-08 16:45 | PTCARENOTE ---
Assessment unchanged. Patient resting comfortably. VSS. Insulin gtt for DKA protocol and IVFs maintained. NPO. Awaiting ABD US.
[2024-03-08 17:40] LABS: Glucose - Point of Care 277 mg/dl (70-99)
[2024-03-08] MEDS: LOVENOX 40 MG SC (17:45)
[2024-03-08 18:22] LABS: Blood Urea Nitrogen 22 mg/dl (9-20); Calcium 7.4 mg/dl (8.4-10.2); Carbon Dioxide 19 mmol/L (22-30); Chloride 115 mmol/L (98-107); Estimated Creatinine Clearance 88 ml/min; Glucose 280 mg/dl (70-99); Potassium 5.2 mmol/L (3.5-5.1); Sodium 146 mmol/L (135-145); eGFR > 60.00
[2024-03-08 18:41] LABS: Glucose - Point of Care 255 mg/dl (70-99)
[2024-03-08 19:44] LABS: Glucose - Point of Care 231 mg/dl (70-99)
[2024-03-08 20:53] LABS: Glucose - Point of Care 219 mg/dl (70-99)
[2024-03-08 21:46] LABS: Glucose - Point of Care 225 mg/dl (70-99)
[2024-03-08 22:16] LABS: Blood Urea Nitrogen 22 mg/dl (9-20); Calcium 7.3 mg/dl (8.4-10.2); Carbon Dioxide 19 mmol/L (22-30); Chloride 115 mmol/L (98-107); Estimated Creatinine Clearance 88 ml/min; Glucose 275 mg/dl (70-99); Sodium 146 mmol/L (135-145); eGFR > 60.00
[2024-03-08 22:52] LABS: Glucose - Point of Care 239 mg/dl (70-99)
[2024-03-08] MEDS: D5/0.45%NSS with KCL 20 MEQ 1000 IV (22:57)
[2024-03-08] MEDS: CALCIUM GLUCONATE 100 IV (22:57)
[2024-03-08] MEDS: 0.45% NACL with KCL 20 MEQ IV (23:14)
[2024-03-08 23:56] LABS: Glucose - Point of Care 269 mg/dl (70-99)
[2024-03-09] VITALS (24 sets, daily range): BP systolic 122–155; BP diastolic 85–108; BMI 34.9
--- NOTE | 2024-03-09 00:27 | PTCARENOTE ---
Pt aoX3, Sinus tach 130's, bp elevated, FRAME OPERATOR aware. Pt continues on an insulin gtt for DKA. BG <250, IVF fluids changed to by FRAME OPERATOR per protocol. Calcium 7.3, repleted. Repeat BMP at 0200. Abdominal US completed at bedside. Pt had 1 episode of dry
heaving. Continues to have abdominal pain, PRN medications given.
[2024-03-09 00:52] LABS: Glucose - Point of Care 257 mg/dl (70-99)
[2024-03-09 01:48] LABS: Glucose - Point of Care 261 mg/dl (70-99)
[2024-03-09 02:45] LABS: Glucose - Point of Care 274 mg/dl (70-99)
[2024-03-09] MEDS: DILAUDID 0.5 MG IV ×2 (02:50→21:46)
[2024-03-09 03:39] LABS: Blood Urea Nitrogen 21 mg/dl (9-20); Carbon Dioxide 25 mmol/L (22-30); Chloride 113 mmol/L (98-107); Estimated Creatinine Clearance 88 ml/min; Glucose 309 mg/dl (70-99); Potassium 4.5 mmol/L (3.5-5.1); Sodium 147 mmol/L (135-145); eGFR > 60.00
[2024-03-09 03:42] LABS: Glucose - Point of Care 286 mg/dl (70-99)
[2024-03-09 04:50] LABS: Glucose - Point of Care 266 mg/dl (70-99)
[2024-03-09 05:05] LABS: Hemoglobin 16.3 g/dL (13.0-18.0); Mean Corp Hgb Conc. 33.3 g/dL (33.0-37.0); Mean Corpuscular Hgb 28.6 pg (27.0-31.0); Mean Platelet Volume 12.6 fL (7.4-10.4); Platelet Count 213 10^3/uL (130-400); Red Cell Dist. Width 14.1 % (11.5-14.5)
[2024-03-09 05:21] LABS: ALT (SGPT) 37 U/L (0-50); AST (SGOT) 42 U/L (17-59); Albumin 2.5 g/dl (3.5-5.0); Alkaline Phosphatase 109 U/L (38-126); Blood Urea Nitrogen 21 mg/dl (9-20); Carbon Dioxide 22 mmol/L (22-30); Chloride 114 mmol/L (98-107); Estimated Creatinine Clearance 88 ml/min; Glucose 320 mg/dl (70-99); Magnesium 2.3 mg/dl (1.6-2.3); Potassium 5.2 mmol/L (3.5-5.1); Sodium 145 mmol/L (135-145); Total Bilirubin 0.8 mg/dl (0.2-1.3); Total Protein 5.5 g/dl (6.3-8.2); eGFR > 60.00
[2024-03-09 05:33] LABS: Lipase 2797 U/L (23-300)
[2024-03-09] MEDS: D5/0.45%NSS with KCL 20 MEQ 1000 IV (05:39)
[2024-03-09] MEDS: DILAUDID 1 MG IV ×2 (05:45→11:48)
[2024-03-09 06:02] LABS: Glucose - Point of Care 272 mg/dl (70-99)
[2024-03-09] MEDS: NOVOLIN R INSULIN INFUSION 100 IV (06:31)
[2024-03-09 06:51] LABS: Glucose - Point of Care 275 mg/dl (70-99)
--- NOTE | 2024-03-09 07:02 | W.PN.INTV ---
Today's Communication / Plan
Recommendations
Follow lipase
Continue n.p.o.
Decrease IV fluids
Monitor renal function
Replace electrolytes
Insulin drip
Diabetic education
Assessment
-
23-year-old obese male [place] immigrant with no significant past medical history who does not see physicians presented with excessive thirst, dehydration, abdominal pain noted to have DKA and severe pancreatitis-rackman consulted for
DKA/pancreatitis/critical care management 03/08/2024.
DKA-initial blood sugar 851, anion gap 23
A1c on admission 13.1 suggesting longstanding diabetes
Severe pancreatitis-felt secondary to uncontrolled diabetes-lipase greater than 4000, amylase 942
Transaminitis
Hypernatremia
Metabolic acidosis/ketoacidosis
Leukocytosis
Polycythemia-suspect hemoconcentration-hemoglobin 18.6
Obesity-BMI 34
Fatty infiltration of liver
Conditions present prior to admission:
Obesity-BMI 34
Denies any CAD, pulmonary, renal, gastrointestinal or diabetes in the past
Plan
Remains critically ill on insulin drip with severe pancreatitis
Continue supplemental oxygen if needed
Aspiration precautions with head of bed elevation
Incentive spirometry encouraged
Nebulizers if needed-currently not bronchospastic
NPO per gastroenterology
Follow ammmjp-eaudmjwlpe-fyb [id number]
CT abdomen summarized below
Consider MRI
GI evaluation ongoing-correspondence reviewed
Analgesia as needed-monitor for oversedation
Follow LFTs
Consider vlkooxlwoh-jjgzdkpcyi-kluiswelqg, biliary sludge, periampullary diverticulum, pancreatic or ampullary cancer, ampullary stenosis, duodenal stricture or obstruction
Consider toxic-ethanol, methanol, scorpion venom, organophosphate poisoning, Consider eezoyebah-rhmqptgvydnohi-pmdd I, 4, 5, and hypercalcemia, Consider drugs-didanosine, pentamidine, metronidazole, thiazide, tetracycline,stibogluconate,
sulfasalazine, L-aspartate, azathioprine, valproic acid, sulindac, aspirin, calcium, estrogen, Consider vnyqcszlpn-gslghuo-ayfsx, coxsackie, CMV, varicella, HSV, HIV, bacterial, fungal or parasitic, Consider trauma-blunt or penetrating, or
iatrogenic during ERCP, Consider congenital, Consider vascular-ischemia, atheroembolic, vasculitis, Consider zadpsczierdbw-nvpa-DBFB, , renal transplantation, alpha-1 antitrypsin deficiency and consider genetic on rare occasions
Fluid resuscitation-begin to decrease IV fluids
Significant third spacing-monitor for abdominal compartment syndrome
Aggressive fluid resuscitation as tolerated in the first 24-48 hours-can minimize renal ATN
Pressors as needed
Pain control-Meperidine favored over morphine for analgesia as morphine can cause increase in sphincter of Oddi pressure
Continue to monitor blood sugar
Monitor anion gap-has closed
Insulin drip continues
A1c 13.1
Diabetic nurse practitioner consultation
Intravenous fluid resuscitation
Continue to replace potassium and magnesium
Diabetic education
Nutrition-consider TPN if n.p.o. for extended period time
Monitor for infection
Prophylactic antibiotics are not recommended initially unless infection is suspected
Consider Pentoxifyline-Some studies of shown treatment had fewer ICU admissions, and reduced hospital stay
Continue to monitor renal function
Follow hemoglobin-initially 18.6-if remains elevated after euvolemia and consider polycythemia workup-currently 16.3
Monitor leukocytosis
Follow LFTs
DVT prophylaxis-on Lovenox
Nutrition once pancreatitis improves, consider TPN
Early mobilization
Eventual outpatient sleep disorder breathing/obstructive sleep apnea workup
Critical care statement: A total of 40 minutes of critical care time was provided for this patient today. This includes management of unstable vital signs, evaluation of the patient at bedside, reviewing the patient's pertinent medical records
including radiographs, microbiology, laboratory evaluations, and discussion with primary team, consultants, pharmacy, charge nurse, critical care nursing, and respiratory therapy.
Diagnostic data:
Chest x-ray 03/07/2024-NAD
CT abdomen and pelvis 03/07/2024-acute pancreatitis with extensive peripancreatic edema, hepatomegaly with diffuse fatty infiltration of the liver, no abnormal pancreatic masses or calcifications, gallbladder was normal
Subjective Dataa
Subjective Data
Date of Service:
Date of Service: March 09, 2024
Chief Complaint: Aviation Electronic Warfare Operator Follow Up and Pulmonary Follow Up
Subjective:
Feels better, occasional abdominal pain-controlled, no shortness of breath at rest lying flat, productive cough
Review of Systems
General: Other (Per HPI)
Objective Data
Data Reviewed
Vital Signs / I&O / Oxygen:
Vital Signs
Temp Pulse Resp BP Pulse Ox
98.8 F 128 21 149/102 95
03/08/24 23:47 03/09/24 03:00 03/09/24 03:00 03/09/24 02:00 03/09/24 03:00
Intake and Output
03/08/24 03/09/24 03/10/24
06:59 06:59 06:59
Intake Total 2669 / 2873 4047 / 4047
Output Total 425 / 425 550 / 550
Balance 2244 / 2448 3497 / 3497
SaO2 95
Nasal Cannula flow liters per 2
minute
Physical Exam
General: Respiratory Distress (n) and Comfortable
HEENT: Normocephalic, Anicteric and Moist Mucous Membranes
Cardiovascular: Regular Rhythm
Respiratory: Wheeze (n), Crackles (Few basilar), Rhonchi (n), Non-Labored Respirations, Accessory Resp Muscle Use (n) and Stridor (n)
GI: Soft, Distended and Tender (Epigastric)
Neurology: Awake, Alert and No Motor Deficits
Skin: Warm, Good Color, Cyanosis (n) and Jaundice (n)
Labs/Micro/Reports
Lab Data
03/09/24 04:40
[2024-03-09] MEDS: 0.45%NACL 1000 IV ×2 (07:12→17:23)
--- NOTE | 2024-03-09 07:20 | W.PN.GI.CBS2 ---
Today's Communication / Plan
-
Please see assessment and plan for details.
Assessment / Plan
-
1. Pancreatitis: Severe, interstitial, likely secondary to uncontrolled diabetes, with severe hemoconcentration, now overall improved after aggressive IV fluid resuscitation which is now decreased, with improvement in acidosis, hemoconcentration,
lipase. He likely has significant third spacing of fluids, though his abdomen is not tense and is passing flatus. At this point would continue supportive care, IV fluids, glycemic control, and continue n.p.o. for now. If he continues to improve
then likely start clears tomorrow. If has worsening abdominal pain then we will likely repeat CT scan with contrast to evaluate for necrosis.
Subjective
Subjective
Date of Service: March 09, 2024
Patient feeling okay, did have some abdominal pain overnight but overall feels improved, less nausea and vomiting. He is passing flatus, no bowel movements. His IV fluids have been decreased, remains tachycardic. His repeat labs show improvement
in his severe hemoconcentration, glucose, anion gap and lipase.
Objective
Data Reviewed
Laboratory Data:
Laboratory Results
03/09/24 04:40
Laboratory Results
PT 13.8 Sec (11.4-14.6) 03/07/24 19:36
INR 1.06 03/07/24 19:36
APTT 23.4 Sec (23.4-35.0) 03/07/24 19:36
Phosphorus 3.1 mg/dl (2.5-4.5) 03/08/24 03:51
Magnesium 2.3 mg/dl (1.6-2.3) 03/09/24 04:40
Total Bilirubin 0.8 mg/dl (0.2-1.3) 03/09/24 04:40
AST 42 U/L (17-59) 03/09/24 04:40
ALT 37 U/L (0-50) 03/09/24 04:40
Alkaline Phosphatase 109 U/L (38-126) 03/09/24 04:40
Amylase 942 U/L (30-110) H* 03/08/24 03:51
Lipase 2797 U/L (23-300) H* 03/09/24 04:40
Vital Signs and I&O:
Vital Signs
Temp Pulse Resp BP Pulse Ox
98.8 F 128 21 149/102 95
03/08/24 23:47 03/09/24 03:00 03/09/24 03:00 03/09/24 02:00 03/09/24 03:00
I&O
03/08/24 03/09/24 03/10/24
06:59 06:59 06:59
Intake Total 2669 / 2873 4047 / 4047
Output Total 425 / 425 550 / 550
Balance 2244 / 2448 3497 / 3497
Physical Exam
Physical Exam
General: NAD
Abdomen: Few normal bowel sounds, mildly distended though soft, mild diffuse tenderness, no masses or bruits, no ascites
--- NOTE | 2024-03-09 07:26 | PTCARENOTE ---
Pt potassium 5.2, BG rising with the d5, fluids changed to 1/2NS @100ml/hr. urine out put low, concentrated. Lipase improving. Pt still has diffuse abdominal pain prn medication given with relief. remains on insulin gtt at 4mcg.
[2024-03-09 07:44] LABS: Glucose - Point of Care 310 mg/dl (70-99)
[2024-03-09 08:45] LABS: Glucose - Point of Care 226 mg/dl (70-99)
[2024-03-09 09:44] LABS: Glucose - Point of Care 212 mg/dl (70-99)
[2024-03-09] MEDS: LANTUS 0.1 UNITS SC ×2 (10:48→21:45)
[2024-03-09] MEDS: NOVOLOG FLEXPEN 4 UNITS SC ×3 (10:48→23:40)
[2024-03-09] MEDS: NOVOLOG FLEXPEN-LOW RESISTANCE 2 UNITS SC ×3 (10:49→23:40)
[2024-03-09 11:03] LABS: Glucose - Point of Care 207 mg/dl (70-99)
--- NOTE | 2024-03-09 11:53 | PTCARENOTE ---
~1050 10units SQ Lantus given, pt started on Q6hr standing Novolog and SSI. Insulin gtts dc'd. ~1150 pt c/o abd pain, PRN Dilaudid given.
--- NOTE | 2024-03-09 14:18 | W.PN.UPDATE ---
Update Note
Progress Note Update
Seen and examined by me independently in collaboration with the director of medical staff services.
Lab data and imaging data reviewed.
Addendum as below :
Patient with some improvement in abdominal pain. Still some nausea and an episode of emesis. Passing gas but no bowel movement.
Breathing is okay at rest. He is requiring 2 L of oxygen. No respiratory distress.
Heart sound S1 plus S2 tachycardic.
Chest was clear to auscultation.
Abdomen nondistended hypoactive bowel sounds, soft but tenderness in the upper abdomen but no rebound.
New onset of diabetes mellitus with DKA-anion flap was closed. Transition to subcutaneous insulin. Based on his weight he requires 42 units. Will use Lantus units 10 mg twice a day and NovoLog 4 units every 6 hours and continue with the sliding
scale. Repeat a BMP later this afternoon to make sure he does not slip back into ketoacidosis.
Acute pancreatitis-slight improvement in the pain noted. No evidence of obvious fluid overload or ARDS at this current time. Watch out for ileus. Bowel sounds though hypoactive. Appreciate GI input. Continue with the lower rate of IV fluids
till he is on a diet. Currently on sips of clears. Start on a diet per GI.
Hypertriglyceridemia-repeat as the blood sugars are better .
WAYNE RN
total time spent on today's encounter was 52 minutes which included time spent in counseling the patient/family regarding diagnosis and treatment plan as listed above, goals of care, and symptom management. Case was discussed with nursing staff,
specialists, and care coordinators/case management. All labs and imaging personally reviewed by me. Remainder the time spent in detailed review of previous records, lab data, imaging, and other medical provider documentation.
--- NOTE | 2024-03-09 15:03 | W.PN.HOSP.TC ---
Today's Communication/Plan
-
Keep continue to check patient's serum glucose levels
Assessment / Plan
Assessment / Plan
Diabetic Ketoacidosis:
- Started on 10 units glargine 10 units BID, Insulin aspart 4 units q6h, sliding scale low resistance, d/c insulin drip, watch glucose levels q6h and continue current IV fluids (03/09)
- Possible transition to clear liquids tomm, and currently NPO today
- currently on hydromorphone for pain control (03/09)
- Anion gap is calculated at 9 ( 03/09)
- Glucose level is 275 (03/09)
- Hemoglobin A1c is 13.1
- tachycardic- 127
- Patient was having more than a week of polyuria and polydipsia,
- Serum glucose levels were 851 on admission
- Beta hydroxybutyrate- 4.62
- Patient transferred to ICU, NPO, started on IV insulin drip, IV fluids- .45% NaCl, pain medications as needed,
- ordered Consult with diabetes management by nurse practitioner, amylase, phosphorus, magnesium, lipase, triglycerides, CMP, CBC, in the a.m.
Acute Pancreatitis:
- GI saw patient on 03/08
- Continue NPO, IV fluids, pain medications ordered (03/08)
- Triglycerides are 400 which should decrease with the administration of insulin
- Continue with pain medications
- Watch for signs and symptoms of the complications of acute pancreatitis
- CT scan showed extensive peripancreatic edema consistent with acute pancreatitis
- Lipase levels over 4000 on admission
Fatty liver
Secondary to diabetic ketoacidosis
obesity?:
- CT of the abdomen pelvis with contrast showed hepatomegaly with diffuse fatty infiltration of the liver
- Maybe related to his BMI as he is obese with a BMI of 34
- continue to treat the diabetic ketoacidosis, and observe after repeat scan
Leucocytosis:
- wbc is 12.0(03/09)- downtrending from admission
- Probably associated with the acute pancreatitis
- continue to observe and follow WBC
Hypernatremia:
- Na levels on admission was 149
- Corrected hypernatremia is 160 on admission taking into account patients hyperglycemia
- Fluids given 0.45
Anticipated Discharge: 24 - 48 hours
Subjective/Interval History
-
Date of Service: March 09, 2024
Patient still has slight epigastric abdominal pain and had 1 episode of vomiting last night but overall feels much better.
Objective Data
-
Labs:
Laboratory Results
03/09/24 03/09/24 03/09/24
02:43 04:40 12:00
WBC 12.0 H
Hgb 16.3
Hct 49.0
Plt Count 213 D
Sodium 147 H 145 Cancelled
Potassium 4.5 5.2 H Cancelled
Chloride 113 H 114 H Cancelled
Carbon Dioxide 25 22 Cancelled
BUN 21 H 21 H Cancelled
Creatinine 1.2 1.2 Cancelled
Glucose 309 H 320 H Cancelled
Calcium 8.0 L 8.0 L Cancelled
Total Bilirubin 0.8
AST 42
ALT 37
Alkaline Phosphatase 109
03/09/24 03/09/24
16:00 20:00
WBC
Hgb
Hct
Plt Count
Sodium Cancelled Cancelled
Potassium Cancelled Cancelled
Chloride Cancelled Cancelled
Carbon Dioxide Cancelled Cancelled
BUN Cancelled Cancelled
Creatinine Cancelled Cancelled
Glucose Cancelled Cancelled
Calcium Cancelled Cancelled
Total Bilirubin
AST
ALT
Alkaline Phosphatase
Vital Signs:
Vital Signs
Temp Pulse Resp BP Pulse Ox
98.4 F 119 17 134/99 94
03/09/24 08:00 03/09/24 14:05 03/09/24 14:05 03/09/24 14:05 03/09/24 14:05
I&O
03/08/24 03/09/24 03/10/24
06:59 06:59 06:59
Intake Total 2669 / 2873 4047 / 4201 865 / 865
Output Total 425 / 425 550 / 550 150 / 150
Balance 2244 / 2448 3497 / 3651 715 / 715
Review of Systems
-
History Source: Patient
Abdomen/GI: Reports Pain (epigastric)
Physical Exam
-
General: Obese
HEENT: Normocephalic and Atraumatic
Respiratory: Clear to Auscultation
Cardiac: Regular Rhythm, S1/S2 and Tachycardic
GI: Tender (epigastric)
Musculoskeletal: No Edema
Neuro: Awake, Alert, Oriented and AO x 3
Data Reviewed
-
Labs: Labs Reviewed by me and Discussed with Physician
[2024-03-09 16:20] LABS: Glucose - Point of Care 208 mg/dl (70-99)
[2024-03-09 16:38] LABS: Blood Urea Nitrogen 21 mg/dl (9-20); Calcium 7.9 mg/dl (8.4-10.2); Carbon Dioxide 22 mmol/L (22-30); Chloride 113 mmol/L (98-107); Estimated Creatinine Clearance 89 ml/min; Glucose 256 mg/dl (70-99); Potassium 4.6 mmol/L (3.5-5.1); Sodium 145 mmol/L (135-145); eGFR > 60.00
--- NOTE | 2024-03-09 16:41 | PTCARENOTE ---
Pt stated he was able to sleep awhile this afternoon. Ambulated to bathroom. Bloodwork sent, no changes in assessment.
[2024-03-09] MEDS: LOVENOX 40 MG SC (17:23)
[2024-03-09 21:59] LABS: Glucose - Point of Care 211 mg/dl (70-99)
--- NOTE | 2024-03-09 22:21 | PTCARENOTE ---
2140: Assumed care of the patient. Patient received OOB to chair. Assessed, AAOx3 and able to make his needs known. Complained of 6/10 abdominal pain. Denied feeling nauseated at this time. Pt ambulated to the bathroom. Gait steady. Sinus tachy on
the monitor. All pulses are palpable. Diminished breath sounds. Spo2 at 94% on 2 liter oxygen/ nc. No cough noted. Hypoactive bowel sounds. The patient brushed his teeth. Voids in the toilet and utilizes urinal at the bedside. 0.45 NaCL at 100 ml/hr
via left 20 g AC. Right hand IV is patent. Patient's back in bed. All needs met at this time. Bed in the lowest position. Call don and personal belongings are within reach.
[2024-03-09 23:55] LABS: Glucose - Point of Care 240 mg/dl (70-99)
[2024-03-10] VITALS (14 sets, daily range): BP systolic 123–160; BP diastolic 76–119; BMI 35.1
--- NOTE | 2024-03-10 01:48 | PTCARENOTE ---
Patient reassessed. Sinus tachy on the monitor with HR 125-130. Pt's eyes are closed. RR 22. Unlabored breathing with even chest rise. VARITYPIST made aware and Lopressor 5 mg IV ordered. Pharmacy called twice as medication was not showing up on the pyxis.
Per the Pharmacist, the Pyxis is having issues and they will tube medication to the unit.
[2024-03-10] MEDS: LOPRESSOR 5 MG IV (01:53)
[2024-03-10] MEDS: DILAUDID 0.5 MG IV ×2 (03:59→09:51)
--- NOTE | 2024-03-10 04:01 | PTCARENOTE ---
Patient reassessed. Complains of 6/10 abdominal pain. Patient ambulated to the bathroom. Assisted in bag bath with CHG wipes. Dilaudid administered. SpO2 at 96% on 2L/O2. .No further changes.
[2024-03-10 04:17] LABS: Hemoglobin 14.7 g/dL (13.0-18.0); Mean Corp Hgb Conc. 33.4 g/dL (33.0-37.0); Mean Corpuscular Hgb 28.8 pg (27.0-31.0); Mean Corpuscular Volume 86.1 fL (80.0-94.0); Mean Platelet Volume 12.9 fL (7.4-10.4); Platelet Count 200 10^3/uL (130-400); Red Blood Cell Count 5.11 10^6/uL (4.70-6.10); Red Cell Dist. Width 13.8 % (11.5-14.5); White Blood Cell Count 12.7 10^3/uL (4.8-10.8)
[2024-03-10 04:44] LABS: ALT (SGPT) 33 U/L (0-50); AST (SGOT) 37 U/L (17-59); Albumin 2.6 g/dl (3.5-5.0); Alkaline Phosphatase 110 U/L (38-126); Blood Urea Nitrogen 23 mg/dl (9-20); Calcium 8.1 mg/dl (8.4-10.2); Carbon Dioxide 19 mmol/L (22-30); Chloride 113 mmol/L (98-107); Estimated Creatinine Clearance 97 ml/min; Glucose 242 mg/dl (70-99); Lipase 920 U/L (23-300); Magnesium 2.3 mg/dl (1.6-2.3); Potassium 4.4 mmol/L (3.5-5.1); Sodium 146 mmol/L (135-145); Total Bilirubin 0.7 mg/dl (0.2-1.3); Total Protein 5.4 g/dl (6.3-8.2); Triglycerides 216 mg/dl (10-149); eGFR > 60.00
[2024-03-10] MEDS: 0.45%NACL 1000 IV ×2 (05:52→16:03)
[2024-03-10] MEDS: NOVOLOG FLEXPEN-LOW RESISTANCE 2 UNITS SC ×2 (05:52→11:51)
[2024-03-10] MEDS: NOVOLOG FLEXPEN 4 UNITS SC (05:53)
[2024-03-10 06:05] LABS: Glucose - Point of Care 202 mg/dl (70-99)
--- NOTE | 2024-03-10 07:16 | W.PN.INTV ---
Today's Communication / Plan
Recommendations
Transition insulin drip
Begin clear liquids
Decrease intravenous fluids
Monitor lipase, hemoglobin, LFTs and renal function
If transitioned off insulin drip and could be transferred out of ICU-call pulmonary if respiratory issues arise
Assessment
-
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
DKA/pancreatitis/critical care management 03/08/2024.
DKA-initial blood sugar 851, anion gap 23
A1c on admission 13.1 suggesting longstanding diabetes
Severe pancreatitis-felt secondary to uncontrolled diabetes-lipase greater than 4000, amylase 942
Transaminitis
Hypernatremia
Metabolic acidosis/ketoacidosis
Leukocytosis
Polycythemia-suspect hemoconcentration-hemoglobin 18.6
Obesity-BMI 34
Fatty infiltration of liver
Conditions present prior to admission:
Obesity-BMI 34
Denies any CAD, pulmonary, renal, gastrointestinal or diabetes in the past
Plan
Continues to be critically ill on insulin drip with severe pancreatitis-slowly improving
Continue supplemental oxygen if needed-attempt to wean to room air
Aspiration precautions with head of bed elevation
Incentive spirometry encouraged
Nebulizers if needed-currently not bronchospastic
NPO per gastroenterology-will begin clear liquids today
Follow ahwhzb-jbtnpsayna-sxwrvsgpr greater than 4000, then 2797 on 03/09/2024 and today 03/10/2020 4-920
CT abdomen summarized below
GI evaluation ongoing-correspondence reviewed-reviewed with them-no immediate reimaging needed-at risk for necrotizing pancreatitis
Analgesia as needed-monitor for oversedation
Monitor LFTs
Unclear etiology of pancreatitis-has been case reports of longstanding uncontrolled diabetes causing pancreatitis
The following etiologies gppvuwrmda-onraavyuwp-atwzuqxnxi, biliary sludge, periampullary diverticulum, pancreatic or ampullary cancer, ampullary stenosis, duodenal stricture or obstruction
Consider toxic-ethanol, methanol, scorpion venom, organophosphate poisoning, Consider mplqvfdij-lrmctivumecbfs-fkid I, 4, 5, and hypercalcemia, Consider drugs-didanosine, pentamidine, metronidazole, thiazide, tetracycline,stibogluconate,
sulfasalazine, L-aspartate, azathioprine, valproic acid, sulindac, aspirin, calcium, estrogen, Consider xuxialgens-cftdazs-itinq, coxsackie, CMV, varicella, HSV, HIV, bacterial, fungal or parasitic, Consider trauma-blunt or penetrating, or
iatrogenic during ERCP, Consider congenital, Consider vascular-ischemia, atheroembolic, vasculitis, Consider hticlnokrgqis-ifwp-WJTE, , renal transplantation, alpha-1 antitrypsin deficiency and consider genetic on rare occasions
Decrease IV fluids
Significant third spacing-monitor for abdominal compartment syndrome-no evidence for
Aggressive fluid resuscitation as tolerated in the first 24-48 hours-can minimize renal ATN-now fluids have been backed off
Pressors have not been required
Pain control-Meperidine favored over morphine for analgesia as morphine can cause increase in sphincter of Oddi pressure
Continue to follow blood sugar closely
Monitor anion gap-has closed
Insulin drip continues-could likely be transitioned
A1c 13.1
Diabetic nurse practitioner consultation
Intravenous fluid resuscitation
Continue to replace potassium and magnesium
Diabetic education
Nutrition-consider TPN if n.p.o. for extended period time
Monitor for infection
Prophylactic antibiotics are not recommended initially unless infection is suspected
Consider Pentoxifyline-some studies of shown treatment had fewer ICU admissions, and reduced hospital stay
Monitor renal function
Follow hemoglobin-initially 18.6-if remains elevated after euvolemia and consider polycythemia workup- 16.3 on 03/09/2024 and now normalized to 14.7
Monitor leukocytosis
Follow LFTs
DVT prophylaxis-on Lovenox
Nutrition once pancreatitis improves, consider TPN
Early mobilization
Updated multiple family members came to visit
If able to be weaned off insulin drip they could be transferred out of ICU-call pulmonary if respiratory issues arise
Eventual outpatient sleep disorder breathing/obstructive sleep apnea workup
Critical care statement: A total of 42 minutes of critical care time was provided for this patient today. This includes management of unstable vital signs, evaluation of the patient at bedside, reviewing the patient's pertinent medical records
including radiographs, microbiology, laboratory evaluations, and discussion with primary team, consultants, pharmacy, charge nurse, critical care nursing, and respiratory therapy.
Diagnostic data:
Chest x-ray 03/07/2024-NAD
CT abdomen and pelvis 03/07/2024-acute pancreatitis with extensive peripancreatic edema, hepatomegaly with diffuse fatty infiltration of the liver, no abnormal pancreatic masses or calcifications, gallbladder was normal
Subjective Dataa
Subjective Data
Date of Service:
Date of Service: March 10, 2024
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
Subjective:
Feels better, no shortness of breath, chest pain and abdominal pain is improved, slightly hungry
Review of Systems
General: Other (Per HPI)
Objective Data
Data Reviewed
Vital Signs / I&O / Oxygen:
Vital Signs
Temp Pulse Resp BP Pulse Ox
98.1 F 124 22 157/101 94
03/10/24 03:30 03/10/24 01:53 03/09/24 20:00 03/10/24 01:53 03/09/24 20:10
Intake and Output
03/09/24 03/10/24 03/11/24
06:59 06:59 06:59
Intake Total 4047 / 4201 2465 / 2465
Output Total 550 / 550 821 / 821
Balance 3497 / 3651 1644 / 1644
SaO2 94
Nasal Cannula flow liters per 2
minute
Physical Exam
General: Respiratory Distress (n) and Comfortable
HEENT: Normocephalic, Anicteric and Moist Mucous Membranes
Cardiovascular: Regular Rhythm
Respiratory: Wheeze (n), Crackles (Few basilar), Rhonchi (n), Non-Labored Respirations, Accessory Resp Muscle Use (n) and Stridor (n)
GI: Soft, Distended and Tender (Epigastric)
Neurology: Awake, Alert and No Motor Deficits
Skin: Warm, Good Color, Cyanosis (n) and Jaundice (n)
Labs/Micro/Reports
Lab Data
03/10/24 03:39
03/10/24 03:39
--- NOTE | 2024-03-10 07:37 | PTCARENOTE ---
vital signs filed for previous shift from 03/09 @1999- 03/10 @0700.
--- NOTE | 2024-03-10 07:55 | W.PN.GI.CBS2 ---
Today's Communication / Plan
-
Please see assessment and plan for details.
Assessment / Plan
-
1. Pancreatitis: Severe, interstitial, likely secondary to prolonged uncontrolled diabetes, with severe hemoconcentration, now overall improved after aggressive IV fluid resuscitation which is now decreased, with improvement in acidosis,
hemoconcentration, lipase. He likely has significant third spacing of fluids, though his abdomen is not tense and is passing flatus and is significantly improved today. At this point would continue supportive care, IV fluids, glycemic control, and
we will start clear liquids today. If any signs of decompensation would have low threshold for repeat imaging to evaluate for necrosis but will hold on this for now.
Subjective
Subjective
Date of Service: March 10, 2024
Patient overall feeling better, minimal nausea, passing flatus, pain is present though less, no fevers overnight.
Objective
Data Reviewed
Laboratory Data:
Laboratory Results
03/10/24 03:39
03/10/24 03:39
Laboratory Results
PT 13.8 Sec (11.4-14.6) 03/07/24 19:36
INR 1.06 03/07/24 19:36
APTT 23.4 Sec (23.4-35.0) 03/07/24 19:36
Phosphorus 3.1 mg/dl (2.5-4.5) 03/08/24 03:51
Magnesium 2.3 mg/dl (1.6-2.3) 03/10/24 03:39
Total Bilirubin 0.7 mg/dl (0.2-1.3) 03/10/24 03:39
AST 37 U/L (17-59) 03/10/24 03:39
ALT 33 U/L (0-50) 03/10/24 03:39
Alkaline Phosphatase 110 U/L (38-126) 03/10/24 03:39
Amylase 942 U/L (30-110) H* 03/08/24 03:51
Lipase 920 U/L (23-300) H 03/10/24 03:39
Vital Signs and I&O:
Vital Signs
Temp Pulse Resp BP Pulse Ox
98.1 F 124 22 157/101 94
03/10/24 07:00 03/10/24 01:53 03/09/24 20:00 03/10/24 01:53 03/09/24 20:10
I&O
03/09/24 03/10/24 03/11/24
06:59 06:59 06:59
Intake Total 4047 / 4201 2465 / 2465
Output Total 550 / 550 821 / 821
Balance 3497 / 3651 1644 / 1644
Physical Exam
Physical Exam
General: NAD
Abdomen: Few normal bowel sounds, mildly distended though soft, mild epigastric tenderness without rebound, no masses or bruits, no ascites
[2024-03-10] MEDS: LANTUS 0.1 UNITS SC (08:07)
--- NOTE | 2024-03-10 11:12 | PTCARENOTE ---
Rec'd pt at 0700. Pt AAOx3, ambulating in room with assistance d/t IV pole and wire management. Monitor ST. Lungs CTA, dim. Trialed pt off O2. Pox 95% RA, pt requesting to keep 2LNC on for comfort, reapplied, pox 97%. Pt states his abdominal pain
improved. Sitting OOB in recliner chair throughout morning. Pt to start clear liquids, [facility].
[2024-03-10 11:41] LABS: Glucose - Point of Care 216 mg/dl (70-99)
[2024-03-10] MEDS: NOVOLOG FLEXPEN 5 UNITS SC ×2 (11:52→16:06)
--- NOTE | 2024-03-10 14:06 | W.PN.UPDATE ---
Update Note
Progress Note Update
Seen and examined by me independently in collaboration with the medical liaison.
Lab data and imaging data reviewed.
Addendum as below :
Acute pancreatitis -Improving abdominal pain.Less tender abdomen. Improving lipase. GI started him on clear liquids. Follow his intake and wean off IV fluids. With that drop in triglycerides with the glycemic control I doubt hypertriglyceridemia
as etiology. Abdominal imaging shows no evidence of biliary or gallbladder disease.GI following.
So far no signs of ARDS or significant fluid overload.
BS are quite , watch for ileus.Start on bowel regimen.
New onset DM with DKA - resolved DKA - now on SQ basal bolus insulin. Increase the insulin doses today. CM to see regarding coverage cost for insulin.
Tx to med surg.
--- NOTE | 2024-03-10 14:45 | W.PN.HOSP.TC ---
Today's Communication/Plan
-
continue to trend patients glucose levels and continue to observe any changes in his abdominal pain
Assessment / Plan
Assessment / Plan
Diabetic Ketoacidosis:
- Changed insulin from 10- glargine 10 units BID, Insulin aspart 4 units q6h, sliding scale low resistance 5 units, d/c insulin drip, watch glucose levels q6h and discontinue current IV fluids (03/10)
- Transition to clear liquids today (03/10)
- Anion gap is calculated at 14 ( 03/10)
- Glucose level is 242 (03/10)
- ordered oxycodone 5 mg for pain control (03/10)
- Hemoglobin A1c is 13.1
- tachycardic- 127
- Patient was having more than a week of polyuria and polydipsia,
- Serum glucose levels were 851 on admission
- Beta hydroxybutyrate- 4.62
- Patient transferred to ICU, NPO, started on IV insulin drip, IV fluids- .45% NaCl, pain medications as needed,
- ordered Consult with diabetes management by nurse practitioner, amylase, phosphorus, magnesium, lipase, triglycerides, CMP, CBC, in the a.m.
Acute Pancreatitis:
- triglycerides are 216 today (03/10)
- GI saw patient on 03/08
- Continue NPO, IV fluids, pain medications ordered (03/08)
- Watch for signs and symptoms of the complications of acute pancreatitis
- CT scan showed extensive peripancreatic edema consistent with acute pancreatitis
- Lipase levels over 4000 on admission
Fatty liver
Secondary to diabetic ketoacidosis
obesity?:
- CT of the abdomen pelvis with contrast showed hepatomegaly with diffuse fatty infiltration of the liver
- Maybe related to his BMI as he is obese with a BMI of 34
- continue to treat the diabetic ketoacidosis, and observe after repeat scan
Leucocytosis:
- wbc is 12.0(03/09)- downtrending from admission
- Probably associated with the acute pancreatitis
- continue to observe and follow WBC
Hypernatremia:
- Na levels on admission was 149
- Corrected hypernatremia is 160 on admission taking into account patients hyperglycemia
- Fluids given 0.45
Anticipated Discharge: 24 - 48 hours
Subjective/Interval History
-
Date of Service: March 10, 2024
Patient had 1 episode of vomiting last night. Still has abdominal pain. Overall feels much better.
Objective Data
-
Labs:
Laboratory Results
03/10/24
03:39
WBC 12.7 H
Hgb 14.7
Hct 44.0
Plt Count 200
Sodium 146 H
Potassium 4.4
Chloride 113 H
Carbon Dioxide 19 L
BUN 23 H
Creatinine 1.1
Glucose 242 H
Calcium 8.1 L
Total Bilirubin 0.7
AST 37
ALT 33
Alkaline Phosphatase 110
Vital Signs:
Vital Signs
Temp Pulse Resp BP Pulse Ox
98.8 F 110 25 134/76 96
03/10/24 11:00 03/10/24 14:00 03/10/24 14:00 03/10/24 14:00 03/10/24 14:00
I&O
03/09/24 03/10/24 03/11/24
06:59 06:59 06:59
Intake Total 4047 / 4201 2465 / 2565 800 / 800
Output Total 550 / 550 821 / 821
Balance 3497 / 3651 1644 / 1744 800 / 800
Review of Systems
-
History Source: Patient
Abdomen/GI: Reports Vomiting (1 episode) and Pain (epigastric)
Physical Exam
-
General: Obese
Respiratory: Clear to Auscultation
Cardiac: Regular Rhythm, S1/S2 and Tachycardic
GI: Tender (epigastric)
Musculoskeletal: No Edema
Neuro: Awake, Alert, Oriented and AO x 3
Data Reviewed
-
Labs: Labs Reviewed by me and Discussed with Physician
[2024-03-10] MEDS: MIRALAX 17 GRAMS PO (16:04)
[2024-03-10] MEDS: NOVOLOG FLEXPEN-LOW RESISTANCE 3 UNITS SC (16:07)
[2024-03-10 16:18] LABS: Glucose - Point of Care 269 mg/dl (70-99)
[2024-03-10] MEDS: LOVENOX 40 MG SC (17:24)
--- NOTE | 2024-03-10 20:00 | PTCARENOTE ---
Rec'd pt resting on chair, amb in room ad lisa, ST, bp stable, + pulses, skin warm/dry, RA, sat 95, + bowel sounds, tender in abd, requests no pain meds, brando clears, voiding in bathroom
[2024-03-10 21:27] LABS: Glucose - Point of Care 328 mg/dl (70-99)
[2024-03-10] MEDS: LANTUS 0.12 UNITS SC (21:42)
[2024-03-10] MEDS: NOVOLOG FLEXPEN 10 UNITS SC (21:42)
[2024-03-10] MEDS: COLACE 100 MG PO (21:43)
--- NOTE | 2024-03-10 21:47 | PTCARENOTE ---
10 units novolog SC given for accu 328 per order
[2024-03-10] MEDS: ROXICODONE 5 MG PO (22:37)
--- NOTE | 2024-03-10 22:38 | PTCARENOTE ---
oxycodone 5mg po givden for upper abd pain
[2024-03-11] VITALS (8 sets, daily range): BP systolic 122–153; BP diastolic 79–103; BMI 36.4
[2024-03-11] MEDS: 0.45%NACL 1000 IV ×2 (04:38→10:18)
[2024-03-11 05:03] LABS: Hematocrit 37.2 % (39.0-52.0); Hemoglobin 12.5 g/dL (13.0-18.0); Mean Corp Hgb Conc. 33.6 g/dL (33.0-37.0); Mean Corpuscular Hgb 27.4 pg (27.0-31.0); Mean Corpuscular Volume 81.4 fL (80.0-94.0); Mean Platelet Volume 12.5 fL (7.4-10.4); Platelet Count 190 10^3/uL (130-400); Red Blood Cell Count 4.57 10^6/uL (4.70-6.10); Red Cell Dist. Width 13.7 % (11.5-14.5); White Blood Cell Count 11.5 10^3/uL (4.8-10.8)
[2024-03-11 05:17] LABS: Blood Urea Nitrogen 17 mg/dl (9-20); Calcium 8.1 mg/dl (8.4-10.2); Carbon Dioxide 16 mmol/L (22-30); Chloride 111 mmol/L (98-107); Estimated Creatinine Clearance 119 ml/min; Glucose 208 mg/dl (70-99); Potassium 3.7 mmol/L (3.5-5.1); Sodium 143 mmol/L (135-145); eGFR > 60.00
--- NOTE | 2024-03-11 06:59 | PN.DE.MGMTRT ---
Insulin Management
- -
03/11/2024: Diabetes Management F/U:
23 year old male with no PMH, who presented to the ED with progressive polydipsia and polyuria associated with abd pain and vomiting.
Serum Glucose on admission was 851, he was noted for DKA with a GAP if 26 and acute pancreatitis with hepatomegaly and diffuse fatty infiltration of the liver.
Pt was started on DKA protocol and transferred to the ICU for management. AC 13.1%, Cr 1.4-->1.3, eGFR >60.
States he recently migrated from [facility], he is able to communicate and comprehend in [place].
Says he is currently employed with limited income, has no health insurance and lives with his cousin, the only family member in the .
Pt awake, A/O x3, resting in bed, offers no complaints. Able to discuss diabetes mgt.
Pt transitioned off DKA protocol on 03/09 @10:45 to SQ insulin. Noted for persistent Hyperglycemia up to 328 @ HS last night.
03/10 BMP shows mild GAP. 03/11 labs not yet resulted. Fasting and premeal glucose has remained elevated >200, requiring additional corrective insulin.
Will STOP Lantus and NovoLog and start 70/30 mixture due to the prohibitive cost of Lantus/NovoLog.
Pt received extensive diabetes education- Monitor and insulin instructions this AM- see education note.
Diabetes History
- -
Type of Diabetes: 2
Pre-Admission Diabetes Regimen
03/11/24
04:43
Creatinine 0.9
Lab Results
Hemoglobin A1c 13.1 % (4.0-5.6) H 03/08/24 03:51
Insulin Pump Settings
IP Diabetes Regimen
03/10/24 03/10/24 03/10/24
11:37 16:05 21:27
Glucose
POC Glucose 216 H 269 H 328 H
09/23/24
04:43
Glucose 208 H
POC Glucose
Meal type: Lunch
Amount consumed: 80%
Patient Education
[2024-03-11] MEDS: NOVOLOG MIX 70/30 FLEXPEN 15 UNITS SC (07:53)
[2024-03-11] MEDS: COLACE 100 MG PO ×2 (07:54→19:43)
[2024-03-11] MEDS: MIRALAX 17 GRAMS PO (07:54)
[2024-03-11] MEDS: NOVOLOG FLEXPEN-LOW RESISTANCE 1 UNITS SC ×2 (07:54→12:24)
[2024-03-11 08:04] LABS: Glucose - Point of Care 175 mg/dl (70-99)
--- NOTE | 2024-03-11 09:13 | PTCARENOTE ---
Rec'd pt resting on chair, amb in room ad lisa, ST, bp stable, + pulses, skin warm/dry, RA, + bowel mvmt reported by pt, tender in abd, requests no pain meds, brando clears, voiding in bathroom. 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
glucometer. Pt administered insulin with pen without issue.
--- NOTE | 2024-03-11 09:53 | PN.DE ---
Diabetes Education
- -
03/11/2024: Diabetes Education Consult
23 year old male with new onset T2DM diagnosis, A1C of 13.1%. Met with Mr. Marc at bedside for monitor and insulin instructions. States he recently migrated from [facility]. He is Korean speaking but is able to communicate and comprehend in
Sinhala. Says he is currently employed with limited income, has no health insurance and lives with his cousin. Due to cost of testing supplies for the contour meter, instructed pt to obtain a Reli-On glucose monitor from [facility], pt states he will
ask his cousin to get it today if he has time.
He has been provided with the Contour Next Ez glucometer as a backup meter.
Reviewed proper testing technique for obtaining a blood glucose, testing pattern of 3 times a day and expected results as noted in take home education booklet. Discussed action of 70/30 mixture insulin as well as symptoms and treatment of
hypoglycemia.
Aware to check blood glucose before fasting and before his 1st meal of the day and inject insulin in stomach and eat in 10-20 minutes and then again to check his blood sugar before dinner and inject insulin, rotating sites.
He was instructed to store insulin pens that are not in use in the refrigerator. Instructions with good return demonstration using the glucometer and insulin pen were noted and result of 218 mg/dl noted before breakfast. Discussed importance of
checking blood sugars 2-3x/day to assess food/medication effect on his BS. Emphasized need to reduce CHO intake, start physical activity with regular exercise and to lose weight.
Spoke with patient's nurse and provided home pen needles so patient can self inject with nursing supervision.
Pt will need RX for 70/30 mixture insulin as well as pen needles at discharge.
--- NOTE | 2024-03-11 09:54 | W.PN.GI.CBS2 ---
Today's Communication / Plan
-
Improving from a pancreatic standpoint and having bowel function. Tolerating CLD and may advance slowly as tolerated. No indication in repeating abdominal imaging at this time. Rest of care as outlined below.
Assessment / Plan
-
#Moderately, Severe Acute Interstitial Pancreatitis 2/2
#Uncontrolled DM #DKA
#Mildly Elevated TGs
#Hepatic Steatosis likely 2/2 #MASLD
#Obesity
This is a 23 y.o male from [facility] with no significant past medical history who presented to the ED with polydipsia, polyuria, subjective chills and acute epigastric abdominal pain found to have DKA and CT imaging with acute pancreatitis with
extensive edema and hepatomegaly. Denied any significant EtOH use or new medications. No prior symptoms like this before in the past or prior episodes of pancreatitis. No family hx of pancreatitis or family history of pancreatic disorders and/or
pancreatic malignancy. Etiology of acute pancreatitis due to DKA from uncontrolled diabetes and only with chug-jf-kypzkeeq elevated TGs (400s) and A1c 13.1%. Otherwise, no evidence of complications as without any pseudoaneurysm, leona-pancreatic
fluid collections or necrosis on CT imaging. Improving after IV fluid resuscitation without signs or symptoms to suggest decompensation.
CT Abd/pelvis 03/07/24: Acute pancreatitis with extensive peripancreatic edema, hepatomegaly with diffuse fatty infiltration of the liver
Abd US 03/08/24: No sonographic evidence for cholelithiasis or bile duct dilatation, hepatic steatosis
Recommendations:
- Tolerating CLD, may advance slowly as tolerated to low-fat, diabetic diet
- Mild leukocytosis, likely reactive secondary to pancreatitis
- Having bowel function, continue Miralax 17 gm BiD and senna qhs for bowel regimen
- LFTs remain wnl and US without evidence of biliary disease
- Defer further w/u at this time (ie autoimmune, hereditary evaluation, etc) as likely in setting of DKA from uncontrolled diabetes and only mildly elevated TGs
- No longer on insulin gtt, transitioned to insulin for further glycemic control and DM (A1c 13.1%)
- Fortunately, still without signs/symptoms to suggest decompensation and would defer repeat CT imaging at this time
- Rest of supportive care as per primary team
GI team will continue to follow while inpatient.
Subjective
Subjective
Date of Service: March 11, 2024
- No acute events overnight
Resting comfortably in bed, working with nurse and inpatient nursing aide regarding administration of insulin. Otherwise, denies any nausea or vomiting. Still with some abdominal discomfort but notes improvement of symptoms. No fevers or chills. Passing
flatus, had one brown BM early this AM.
Objective
Data Reviewed
Laboratory Data:
Laboratory Results
03/11/24 04:43
03/11/24 04:43
Laboratory Results
PT 13.8 Sec (11.4-14.6) 03/07/24 19:36
INR 1.06 03/07/24 19:36
APTT 23.4 Sec (23.4-35.0) 03/07/24 19:36
Phosphorus 3.1 mg/dl (2.5-4.5) 03/08/24 03:51
Magnesium 2.3 mg/dl (1.6-2.3) 03/10/24 03:39
Total Bilirubin 0.7 mg/dl (0.2-1.3) 03/10/24 03:39
AST 37 U/L (17-59) 03/10/24 03:39
ALT 33 U/L (0-50) 03/10/24 03:39
Alkaline Phosphatase 110 U/L (38-126) 03/10/24 03:39
Amylase 942 U/L (30-110) H* 03/08/24 03:51
Lipase 920 U/L (23-300) H 03/10/24 03:39
Vital Signs and I&O:
Vital Signs
Temp Pulse Resp BP Pulse Ox
98.2 F 84 16 135/87 95
03/11/24 07:20 03/11/24 07:20 03/11/24 07:20 03/11/24 07:20 03/10/24 22:48
I&O
03/10/24 03/11/24 03/12/24
06:59 06:59 06:59
Intake Total 2465 / 2565 2540 / 2640 300 / 300
Output Total 821 / 821 1100 / 1100
Balance 1644 / 1744 1440 / 1540 300 / 300
Physical Exam
Physical Exam
HEENT: Anicteric and Moist mucous membranes
Cardiology: Normal Sinus Rhythm
Pulmonary: Clear
GI: Soft, Distended, Non Tender and Other (Hypoactive bowel sounds)
Extremities: Warm
Neuro: Non Focal
[2024-03-11 11:03] LABS: Blood Urea Nitrogen 16 mg/dl (9-20); Calcium 8.1 mg/dl (8.4-10.2); Carbon Dioxide 17 mmol/L (22-30); Chloride 110 mmol/L (98-107); Estimated Creatinine Clearance > 125 ml/min; Glucose 179 mg/dl (70-99); Potassium 3.6 mmol/L (3.5-5.1); Sodium 143 mmol/L (135-145); eGFR > 60.00
[2024-03-11 12:35] LABS: Glucose - Point of Care 157 mg/dl (70-99)
[2024-03-11] MEDS: NOVOLIN R INSULIN INFUSION 100 IV (14:07)
[2024-03-11] MEDS: D5/0.45%NSS with KCL 20 MEQ 1000 IV ×3 (14:13→23:45)
[2024-03-11 14:18] LABS: Glucose - Point of Care 166 mg/dl (70-99)
--- NOTE | 2024-03-11 14:40 | PTCARENOTE ---
Insulin gtt restarted due to widening anion gap. IVF changed as ordered. Pt OOB in chair without complaints at this time. Tolerating clear liq tray.
[2024-03-11 15:18] LABS: Glucose - Point of Care 277 mg/dl (70-99)
--- NOTE | 2024-03-11 15:35 | CM ---
CM met with pt and two cousins bedside
Pt continues to work with equity holder
Pt in agreement with changing pharmacy [facility] to lower cost DM supplies
Updated on chart
Pt provided [facility] brochure in Telugu per request
Pt started calling for intake while CM bedside
Cousins to assist with intake clinic call
Discharge Disposition- home with DM meds and supplies through [facility] and follow up with [facility]
[2024-03-11 16:16] LABS: Glucose - Point of Care 274 mg/dl (70-99)
[2024-03-11 17:10] LABS: Blood Urea Nitrogen 14 mg/dl (9-20); Calcium 7.9 mg/dl (8.4-10.2); Carbon Dioxide 20 mmol/L (22-30); Chloride 108 mmol/L (98-107); Estimated Creatinine Clearance > 125 ml/min; Glucose 300 mg/dl (70-99); Potassium 3.6 mmol/L (3.5-5.1); Sodium 140 mmol/L (135-145); eGFR > 60.00
[2024-03-11 17:16] LABS: Glucose - Point of Care 272 mg/dl (70-99)
--- NOTE | 2024-03-11 17:16 | W.PN.HOSP.TC ---
Addendum entered and electronically signed by Gabrielle Cochran MD 03/11/24 18:49:
I saw and evaluated the patient independently. I reviewed the resident�s note and agree with findings and plan as documented by Dr. Taylor.
GENERAL: well developed, well nourished, male in no apparent distress
HEENT: NC/AT--no O2 requirements
HEART: regular rate and rhythm, +S1, +S2
LUNGS : clear to auscultation bilaterally
ABDOM: soft, tender in midepigastric area, distended, decreased bowel sounds
EXT: no cyanosis, clubbing, or edema
NEUROLOGIC: grossly intact
Diabetic Ketoacidosis--new onset DM with HGB A1C 13.1--was on insulin drip with closed AGAP BUT as of this AM, gap has re-opened--stop all SQ insulin and return patient to insulin drip with IVF to include dextrose if needed--back to NPO--apprec
geophysical computer and GI input--apprec DM AUDIO VISUAL COORDINATOR --follow Q4H BMP with repletion of electrolytes as needed
Acute Pancreatitis--US without gallstones, no significant ETOH use (6 beers every 2 months)--triglycerides not high enough to cause pancreatitis--not on meds--apprec GI--back to NPO/IVF with increased AGAP--- CT scan showed extensive peripancreatic
edema consistent with acute pancreatitis--Lipase levels over 4000 on admission--will try to advance diet to low fat once DKA resolved
Fatty liver --likely due to diet and DM--needs diet education
Leukocytosis--likely reactive-- wbc is downtrending from admission
Hypernatremia--- Corrected hypernatremia was 160 on admission taking into account patients hyperglycemia--improved with IVF and DKA treatment
DVT proph
code status -- FULL CODE
Total Critical Care Time 35 minutes. I was immediately available to the patient and staff. I personally examined, reviewed labs, diagnostic images/reports, interpretations, treatment plans, discussed patient care with other providers and family
or caregivers (if patient is unable to make decisions), entered orders as appropriate and documented the medical record.
Original Note:
Today's Communication/Plan
-
NPO
Restart Iv fluids
restart insulin drip
monitor anion gap
Assessment / Plan
Assessment / Plan
IMPRESSION
A 23y/M with working diagnosis of DKA/ Acute Pancreatitis. Still in acidosis with increased anion gap(16).
ASSESSMENT
DKA
ACUTE PANCREATITIS
HYPERNATREMIA
ANION GAP METABOLIC ACIDOSIS
LEUKOCYTOSIS
PLAN
#1 DIABETIC KETOACIDOSIS
IcD9f=21.1
Admitted with glucose level of 851, anion gap of 14, hba1c of 13
glucose today 208, anion gap calculated to be 16
discontinue subcutaneous insulin
restart iv insulin drip
restart iv fluids
keep patient npo, hold clear liquids
monitor cmp 4 hourly
Goal is to close the anion gap and bring the patient out of acidosis
For pain patient is on Hydromorphone and oxycodone
watch glucose levels
#2 Acute Pancreatitis
On admission Lipase 4000, 03/10/[address] scan showed pancreatic edema and fatty liver(03/07)
ultrasound showed no evidence of gallstones(03/08)
patient drinks 6 beers/2months
Passing gas and had bowel movements today
lfts WNL
gastroenterology has impression that it could be due to uncontrolled dka/obesity(bmi 34)
KEEP PATIENT NPO
#3Hypernatremia
On admission 149, corrected sodium 160
Placed on 0.45 percent normal saline for management of dka
03/11 [id number]
monitor electrolytes
#4 ANION GAP
restart on insulin iv drip and keep npo
close anion gap
once acidosis resolves can consider s/c insulin
#5LEUKOCYTOSIS
On admission tlc was 15.4(03/07)
possibly trigger for the dka
03/11 11.5
downgoing trend
monitor wbc
dvt PPX: LOVENOX
FULL CODE
Anticipated Discharge: 24 - 48 hours
Subjective/Interval History
-
Date of Service: March 11, 2024
Patient complains of abdominal pain and anorexia.
Objective Data
-
Labs:
Laboratory Results
03/11/24 03/11/24 03/11/24
04:43 10:21 12:45
Sodium 143 143 Cancelled
Potassium 3.7 3.6 Cancelled
Chloride 111 H 110 H Cancelled
Carbon Dioxide 16 L 17 L Cancelled
BUN 17 16 Cancelled
Creatinine 0.9 0.8 Cancelled
Glucose 208 H 179 H Cancelled
Calcium 8.1 L 8.1 L Cancelled
03/11/24 03/11/24 03/11/24
16:45 16:45 16:45
Sodium Cancelled 140
Potassium Cancelled 3.6
Chloride Cancelled
Carbon Dioxide
BUN
Creatinine
Glucose
Calcium
03/11/24 03/11/24 03/11/24
16:45 16:45 16:45
Sodium
Potassium
Chloride 108 H
Carbon Dioxide Cancelled 20 L
BUN Cancelled 14
Creatinine Cancelled
Glucose
Calcium
03/11/24 03/11/24 03/11/24
16:45 16:45 16:45
Sodium
Potassium
Chloride
Carbon Dioxide
BUN
Creatinine 0.8
Glucose Cancelled 300 H
Calcium Cancelled 7.9 L
03/11/24
20:45
Sodium Pending
Potassium Pending
Chloride Pending
Carbon Dioxide Pending
BUN Pending
Creatinine Pending
Glucose Pending
Calcium Pending
Vital Signs:
Vital Signs
Temp Pulse Resp BP Pulse Ox
98.7 F 106 29 144/94 97
03/11/24 16:34 03/11/24 16:40 03/11/24 16:40 03/11/24 16:40 03/11/24 16:40
I&O
03/10/24 03/11/24 03/12/24
06:59 06:59 06:59
Intake Total 2465 / 2565 2540 / 2640 1410 / 1410
Output Total 821 / 821 1100 / 1100
Balance 1644 / 1744 1440 / 1540 1410 / 1410
Review of Systems
-
History Source: Patient
All other systems: Reviewed and negative
Physical Exam
-
General: Well Developed, Comfortable, Appears in Distress and Pain
HEENT: Normocephalic and Atraumatic
Respiratory: Clear to Auscultation
Cardiac: Regular Rhythm and S1/S2
GI: Soft, Tender and No Hepatosplenomegaly
Genito-urinary: No Costovertebral Tender
Musculoskeletal: No Clubbing and No Cyanosis
Skin: Warm
Neuro: Awake and Oriented
Hematologic / Lymphatic: No Lymphadenopathy
Psych: Calm
[2024-03-11] MEDS: LOVENOX 40 MG SC (18:12)
[2024-03-11 18:13] LABS: Glucose - Point of Care 270 mg/dl (70-99)
--- NOTE | 2024-03-11 18:19 | PTCARENOTE ---
Assumed care of patient @ 1600. Assessment per charting- see flow sheet. Insulin gtt infusing via # 20 L AC, blood sugar checks maintained q1H and gtt adjusted per orders- see flow sheet. Cardiac/Spo2 reapplied for IMU status. Stand by assisted
from chair into BR and then into bed, gait steady. Pt. instructed on how to report care concerns and call don in reach.
[2024-03-11 19:16] LABS: Glucose - Point of Care 214 mg/dl (70-99)
--- NOTE | 2024-03-11 19:59 | PTCARENOTE ---
rec'd pt resting in bed, cooperative, drowsy, ST, + pulses, no edema, RA, lungs decr in bases, sat 95, + bowel sounds, sm loose brown BM, NPO except meds, sips, voiding in bathroom, Insulin gtt at 3 units/hr- see flow sheet for titrations
[2024-03-11 20:19] LABS: Glucose - Point of Care 242 mg/dl (70-99)
[2024-03-11 21:18] LABS: Glucose - Point of Care 209 mg/dl (70-99)
[2024-03-11 21:29] LABS: Blood Urea Nitrogen 12 mg/dl (9-20); Carbon Dioxide 18 mmol/L (22-30); Chloride 109 mmol/L (98-107); Estimated Creatinine Clearance > 125 ml/min; Glucose 238 mg/dl (70-99); Potassium 3.5 mmol/L (3.5-5.1); Sodium 139 mmol/L (135-145); eGFR > 60.00
[2024-03-11] MEDS: KCL 40 MEQ PO (21:55)
--- NOTE | 2024-03-11 22:00 | PTCARENOTE ---
Nanda Lopez DRY CURE WORKER aware of bmp results, 40 meq kcl po given as ordered
[2024-03-11 22:07] LABS: Glucose - Point of Care 227 mg/dl (70-99)
[2024-03-11 23:08] LABS: Glucose - Point of Care 251 mg/dl (70-99)
[2024-03-11] MEDS: ROXICODONE 5 MG PO (23:54)
--- NOTE | 2024-03-11 23:58 | PTCARENOTE ---
sys reviewed, had sm amt loose stool in bathroom, oxycodone 5mg po given for upper abd pain
[2024-03-12] VITALS (13 sets, daily range): BP systolic 131–166; BP diastolic 89–111; BMI 36.3
[2024-03-12 00:08] LABS: Glucose - Point of Care 219 mg/dl (70-99)
[2024-03-12 01:06] LABS: Glucose - Point of Care 218 mg/dl (70-99)
[2024-03-12 02:07] LABS: Glucose - Point of Care 244 mg/dl (70-99)
[2024-03-12 03:07] LABS: Glucose - Point of Care 228 mg/dl (70-99)
--- NOTE | 2024-03-12 03:58 | PTCARENOTE ---
sys reviewed, changes noted
[2024-03-12 04:06] LABS: Glucose - Point of Care 189 mg/dl (70-99)
[2024-03-12 04:34] LABS: Blood Urea Nitrogen 9 mg/dl (9-20); Carbon Dioxide 19 mmol/L (22-30); Estimated Creatinine Clearance > 125 ml/min; Glucose 211 mg/dl (70-99); Potassium 3.7 mmol/L (3.5-5.1); eGFR > 60.00
[2024-03-12 04:44] LABS: Calcium 7.8 mg/dl (8.4-10.2); Chloride 109 mmol/L (98-107); Sodium 140 mmol/L (135-145)
[2024-03-12] MEDS: D5/0.45%NSS with KCL 20 MEQ 1000 IV ×3 (04:48→14:53)
[2024-03-12] MEDS: KCL 40 MEQ PO (04:54)
--- NOTE | 2024-03-12 04:54 | PTCARENOTE ---
Nanda Lopez, TIRE SORTER notified of lab result, 40 meq kcl po given as ordered
[2024-03-12 05:07] LABS: Glucose - Point of Care 203 mg/dl (70-99)
[2024-03-12 06:10] LABS: Glucose - Point of Care 215 mg/dl (70-99)
[2024-03-12 07:07] LABS: Glucose - Point of Care 209 mg/dl (70-99)
--- NOTE | 2024-03-12 08:00 | PTCARENOTE ---
Received pt. @ change of shift. Assessment per charting- see flow sheet. IVF and insulin gtt infusing via #20 L AC per orders. Q1H accuchecks maintained- gtt adjusted per orders- see flow sheet. Pt. stand by assisted into BR for AM hygiene and
then OOB to chair, tolerating position. NPO status maintained. Instructed on how to report care concerns and call florencia camacho in reach.
[2024-03-12 08:17] LABS: Glucose - Point of Care 199 mg/dl (70-99)
[2024-03-12] MEDS: COLACE 100 MG PO (08:19)
[2024-03-12] MEDS: MIRALAX 17 GRAMS PO (08:19)
[2024-03-12 08:35] LABS: Blood Urea Nitrogen 8 mg/dl (9-20); Calcium 7.7 mg/dl (8.4-10.2); Carbon Dioxide 22 mmol/L (22-30); Chloride 109 mmol/L (98-107); Estimated Creatinine Clearance > 125 ml/min; Glucose 219 mg/dl (70-99); Potassium 3.9 mmol/L (3.5-5.1); Sodium 138 mmol/L (135-145); eGFR > 60.00
[2024-03-12 09:15] LABS: Glucose - Point of Care 197 mg/dl (70-99)
--- NOTE | 2024-03-12 09:21 | CM ---
Patient seen at bedside. Patient stated he did not complete application for [facility] due to needing documentation that only he could get. Patient aware of discharge planned today. Patient plan is for discharge with [facility] up at [facility]. CM will continue to follow for discharge planning needs.
Plan; home with [facility] for medication
[2024-03-12 10:17] LABS: Glucose - Point of Care 231 mg/dl (70-99)
--- NOTE | 2024-03-12 10:23 | W.PN.GI.CBS2 ---
Today's Communication / Plan
-
Improving from a GI standpoint in regards to his pancreatitis without signs of decompensation. See A/P as outlined below for complete recommendations.
Assessment / Plan
-
#Moderately, Severe Acute Interstitial Pancreatitis 2/2
#Uncontrolled DM #DKA
#Mildly Elevated TGs
#Hepatic Steatosis likely 2/2 #MASLD
#Obesity
This is a 23 y.o male from [facility] with no significant past medical history who presented to the ED with polydipsia, polyuria, subjective chills and acute epigastric abdominal pain found to have DKA and CT imaging with acute pancreatitis with
extensive edema and hepatomegaly. No significant EtOH use or new medications. No prior symptoms like this before in the past or prior episodes of pancreatitis. Denies any family hx of pancreatitis or family history of pancreatic disorders and/or
pancreatic malignancy. Calcium wnl and no significant EtOH use. Etiology of acute pancreatitis due to DKA from uncontrolled diabetes and only with iikj-up-zaugocht elevated TGs (400s) and A1c 13.1%. Otherwise, no evidence of complications as without
any pseudoaneurysm, leona-pancreatic fluid collections or necrosis on CT imaging. Continues to improve after IV fluid resuscitation without signs or symptoms to suggest decompensation and ongoing bowel function.
CT Abd/pelvis 03/07/24: Acute pancreatitis with extensive peripancreatic edema, hepatomegaly with diffuse fatty infiltration of the liver
Abd US 03/08/24: No sonographic evidence for cholelithiasis or bile duct dilatation, hepatic steatosis
Recommendations:
- Remains NPO and restarted on IV insulin gtt
- May restart low-fat, diabetic diet once DKA has resolved from GI standpoint
- Mild leukocytosis improving, likely reactive secondary to pancreatitis
- Still having bowel function, continue Miralax 17 gm BiD and senna qhs for bowel regimen
- LFTs remain wnl and US without evidence of biliary disease
- Defer further w/u at this time (ie autoimmune, hereditary evaluation, etc) given first episode as likely in setting of DKA from uncontrolled diabetes and only mildly elevated TGs
- Needs strict glycemic control and management of diabetes (A1c 13.1%) as an outpatient, this is griffiths to preventing future episodes given his metabolic risk factors
- Fortunately, still without signs/symptoms to suggest decompensation and would defer any repeat cross-sectional imaging
- Would abstain from all EtOH given recent pancreatitis
- Recommend outpatient GI follow-up after discharge
- Rest of supportive care as per primary team
Discussed with primary internal medicine team this AM. GI team will sign-off. Please call back with any questions or concerns.
Thank you for allowing me to participate in the care of this patient.
Subjective
Subjective
Date of Service: March 12, 2024
- Restarted on IV insulin gtt given re-opened gap, restarted on IVF and kept NPO
- Otherwise, no acute events overnight
Feeling well, continues to improve in regards to his abdominal pain. Denies any further discomfort and only mild distension. No nausea or vomiting. Passing flatus, last BM two days ago. Otherwise, no fevers, chills or other constitutional symptoms.
Objective
Data Reviewed
Laboratory Data:
Laboratory Results
03/11/24 04:43
03/12/24 08:06
Laboratory Results
PT 13.8 Sec (11.4-14.6) 03/07/24 19:36
INR 1.06 03/07/24 19:36
APTT 23.4 Sec (23.4-35.0) 03/07/24 19:36
Phosphorus 3.1 mg/dl (2.5-4.5) 03/08/24 03:51
Magnesium 2.3 mg/dl (1.6-2.3) 03/10/24 03:39
Total Bilirubin 0.7 mg/dl (0.2-1.3) 03/10/24 03:39
AST 37 U/L (17-59) 03/10/24 03:39
ALT 33 U/L (0-50) 03/10/24 03:39
Alkaline Phosphatase 110 U/L (38-126) 03/10/24 03:39
Amylase 942 U/L (30-110) H* 03/08/24 03:51
Lipase 920 U/L (23-300) H 03/10/24 03:39
Vital Signs and I&O:
Vital Signs
Temp Pulse Resp BP Pulse Ox
98.8 F 106 22 144/103 97
03/12/24 08:02 03/12/24 10:00 03/12/24 10:00 03/12/24 10:00 03/12/24 10:00
I&O
03/11/24 03/12/24 03/13/24
06:59 06:59 06:59
Intake Total 2540 / 2640 4099 / 4302 810 / 810
Output Total 1100 / 1100
Balance 1440 / 1540 4099 / 4302 810 / 810
Physical Exam
Physical Exam
HEENT: Anicteric and Moist mucous membranes
Cardiology: Normal Sinus Rhythm
Pulmonary: Other (Normal work of breathing on room air)
GI: Soft, Distended, Non Tender and Other (Normoactive bowel sounds, not tense)
Extremities: No Edema
Neuro: Non Focal
--- NOTE | 2024-03-12 10:29 | PN.DE.MGMTRT ---
Insulin Management
- -
03/12/2024: Diabetes Management Follow up:
23 year old male with no PMH, who presented to the ED with progressive polydipsia and polyuria associated with abd pain and vomiting.
Serum Glucose on admission was 851, he was noted for DKA with a GAP if 26 and acute pancreatitis with hepatomegaly and diffuse fatty infiltration of the liver.
Pt was started on DKA protocol and transferred to the ICU for management. AC 13.1%, Cr 1.4-->1.3, eGFR >60.
States he recently migrated from [facility].
Says he is currently employed with limited income, has no health insurance and lives with his cousin, the only family member in the .
Pt awake, A/O x3, out of bed in chair, offers no complaints. Able to discuss diabetes mgt, although questionable how much he understands due to language barrier will use language ipad.
Pt transitioned off DKA protocol on 03/11 with one dose of 70/30. GAP opened, insulin infusion restarted. GAP now 7 times 2. Due financial constraints will start 70/30 insulin. Will continue insulin infusion until dinner. Patient to receive 20
units 70/30 then insulin infusion off 1 hour after 70/30 administered. 1800 calorie LO-FAT diet to start with dinner.
Pt received extensive diabetes education- Monitor and insulin instructions this 03/11 by Landen Torres- see education note. Will reinforce in AM.
Diabetes History
- -
Type of Diabetes: 2 requiring insulin
Pre-Admission Diabetes Regimen
03/11/24 03/11/24 03/11/24
10:21 12:45 16:45
Creatinine 0.8 Cancelled Cancelled
03/11/24 03/11/24 03/12/24
16:45 21:08 03:55
Creatinine 0.8 0.7 0.7
03/12/24
08:06
Creatinine 0.7
Lab Results
Hemoglobin A1c 13.1 % (4.0-5.6) H 03/08/24 03:51
Insulin Pump Settings
IP Diabetes Regimen
03/11/24 03/11/24 03/11/24
10:21 12:23 12:45
Glucose 179 H Cancelled
POC Glucose 157 H
03/11/24 03/11/24 03/11/24
14:07 15:06 16:05
Glucose
POC Glucose 166 H 277 H 274 H
03/11/24 03/11/24 03/11/24
16:45 16:45 17:05
Glucose Cancelled 300 H
POC Glucose 272 H
03/11/24 03/11/24 03/11/24
18:02 19:05 20:08
Glucose
POC Glucose 270 H 214 H 242 H
03/11/24 03/11/24 03/11/24
21:06 21:08 21:57
Glucose 238 H
POC Glucose 209 H 227 H
03/11/24 03/11/24 03/12/24
22:58 23:57 00:55
Glucose
POC Glucose 251 H 219 H 218 H
03/12/24 03/12/24 03/12/24
01:57 02:55 03:54
Glucose
POC Glucose 244 H 228 H 189 H
03/12/24 03/12/24 03/12/24
03:55 04:56 05:58
Glucose 211 H
POC Glucose 203 H 215 H
03/12/24 03/12/24 03/12/24
06:56 08:05 08:06
Glucose 219 H
POC Glucose 209 H 199 H
03/12/24 03/12/24
09:03 10:06
Glucose
POC Glucose 197 H 231 H
Meal type: Lunch
Amount consumed: 100%
Patient Education
[2024-03-12 11:15] LABS: Glucose - Point of Care 210 mg/dl (70-99)
[2024-03-12 12:14] LABS: Glucose - Point of Care 216 mg/dl (70-99)
[2024-03-12 12:34] LABS: Blood Urea Nitrogen 7 mg/dl (9-20); Calcium 7.9 mg/dl (8.4-10.2); Carbon Dioxide 23 mmol/L (22-30); Chloride 107 mmol/L (98-107); Estimated Creatinine Clearance > 125 ml/min; Glucose 251 mg/dl (70-99); Sodium 137 mmol/L (135-145); eGFR > 60.00
[2024-03-12 13:23] LABS: Glucose - Point of Care 235 mg/dl (70-99)
--- NOTE | 2024-03-12 13:39 | PTCARENOTE ---
1200 BMP reviewed and anion gap closed x2; DM SOCCER BALL ASSEMBLER, Antoinette Beltran, aware. Plan to cont w IVF and insulin gtt until dinner; then transition to SC insulin per DM SOCCER BALL ASSEMBLER. Pt. made aware. CM to bedside this afternoon w information for regarding output
clinic; provided instruction on correct paper work for pt./family to submit. County Surveyor utilized as needed. Pt. remains in chair; remains NPO. Call florencia camacho in reach.
[2024-03-12 14:11] LABS: Glucose - Point of Care 256 mg/dl (70-99)
[2024-03-12 15:15] LABS: Glucose - Point of Care 226 mg/dl (70-99)
--- NOTE | 2024-03-12 15:27 | CM ---
Patient cousin brought in paperwork for [facility] and CM took cousin to clinic and they reviewed documentation is needed. Patient seen earlier in the day at bedside with physician and residents. Patient would not be able to follow at residentcy
clinic until insurance is confirmed. Patient plan is to use [facility] pharmacy for medications. Patient communication with physician with psychologist [employer]. Patient stated that he understands and will work with cousin to provide all needed
documentation. CM will continue to follow for discharge planning needs.
Plan; [facility] needs.
--- NOTE | 2024-03-12 15:30 | W.PN.HOSP.TC ---
Addendum entered and electronically signed by Gabrielle Cochran MD 03/12/24 19:53:
I saw and evaluated the patient independently. I reviewed the resident�s note and agree with findings and plan as documented by Dr. Taylor.
GENERAL: well developed, well nourished, male in no apparent distress
HEENT: NC/AT--no O2 requirements
HEART: regular rate and rhythm, +S1, +S2
LUNGS : clear to auscultation bilaterally
ABDOM: soft, nontender in midepigastric area, distended, positive bowel sounds
EXT: no cyanosis, clubbing, or edema
NEUROLOGIC: grossly intact
Diabetic Ketoacidosis--new onset DM with HGB A1C 13.1--was on insulin drip with closed AGAP BUT as of this 03/11/24, gap re-opened--stopped all SQ insulin and returned patient to insulin drip with IVF to include dextrose if needed--back to NPO, AGAP
close x 2 and apprec help of DM CHIEF SAFETY OFFICER for transition back to SC insulin--apprec clinical specialist medical device and GI input--apprec DM CHIEF SAFETY OFFICER --ok to downgrade to med surg
Acute Pancreatitis--US without gallstones, no significant ETOH use (6 beers every 2 months)--triglycerides not high enough to cause pancreatitis--not on meds--apprec GI--back to NPO/IVF with increased AGAP--- CT scan showed extensive peripancreatic
edema consistent with acute pancreatitis--Lipase levels over 4000 on admission-- advance diet to low fat/DM
Fatty liver --likely due to diet and DM--needs diet education
Leukocytosis--likely reactive-- wbc is downtrending from admission
Hypernatremia--- Corrected hypernatremia was 160 on admission taking into account patients hyperglycemia--improved with IVF and DKA treatment
DVT proph
code status -- FULL CODE
hopeful d/c tomorrow
Original Note:
Today's Communication/Plan
-
Transfer to [facility]
Patient still in DKA , continue to follow the DKA management protocol
Assessment / Plan
Assessment / Plan
IMPRESSION
A 23y/M with working diagnosis of DKA/ Acute Pancreatitis.
Anion Gap closed
Appears comfortable
ASSESSMENT
DKA
ACUTE PANCREATITIS
PLAN
#1 DIABETIC KETOACIDOSIS
Patient out of DKA
Anion Gap Closed
Transition to 0.45% Normal saline with 20meq potassium
transition to subcutaneous insulin
keep an eye on glucose levels and cmp
start oral diet low fat diabetic diet
#2 Acute Pancreatitis
On admission Lipase 4000, 03/10/2024 lipase 920
repeat lipase
Gastroenterology satisfied with the patient progress
Passing gas and had bowel movements today
lfts WNL
#3 Transfer
transfer patient to telemetery
Anticipated Discharge: 24 - 48 hours
Subjective/Interval History
-
Date of Service: March 11
Patient complains of epigastric pain, overall feels well. Passed Gas and stool. Tender in epigastric region
Objective Data
-
Labs:
Laboratory Results
03/11/24 03/11/24 03/11/24
04:43 10:21 12:45
WBC 11.5 H
Hgb 12.5 L
Hct 37.2 L
Plt Count 190
Sodium 143 143 Pending
Potassium 3.7 3.6 Pending
Chloride 111 H 110 H Pending
Carbon Dioxide 16 L 17 L Pending
BUN 17 16 Pending
Creatinine 0.9 0.8 Pending
Glucose 208 H 179 H Pending
Calcium 8.1 L 8.1 L Pending
03/11/24 03/11/24
16:45 20:45
WBC
Hgb
Hct
Plt Count
Sodium Pending Pending
Potassium Pending Pending
Chloride Pending Pending
Carbon Dioxide Pending Pending
BUN Pending Pending
Creatinine Pending Pending
Glucose Pending Pending
Calcium Pending Pending
Vital Signs:
Vital Signs
Temp Pulse Resp BP Pulse Ox
98.1 F 110 16 122/79 95
03/11/24 12:00 03/11/24 12:00 03/11/24 12:00 03/11/24 12:01 03/10/24 22:48
I&O
03/10/24 03/11/24 03/12/24
06:59 06:59 06:59
Intake Total 2465 / 2565 2540 / 2640 1002 / 1002
Output Total 821 / 821 1100 / 1100
Balance 1644 / 1744 1440 / 1540 1002 / 1002
Review of Systems
-
History Source: Patient
Constitutional: Reports Weakness
EENT: Reports No Symptoms Reported
Cardiac: Reports No Symptoms
Abdomen/GI: Reports Abdominal Pain and Anorexia
Breast: Reports No Symptoms
Genitourinary: Reports No Symptoms
Musculoskeletal: Reports No Symptoms
Skin: Reports No Symptoms
Neuro: Reports No Symptoms
Endocrine: Reports No Symptoms
Hematologic / Lymphatic: Reports No Symptoms
Allergy / Immunology: Reports No Symptoms
Physical Exam
-
General: No Apparent Distress, Pain and Conversant
Respiratory: Clear to Auscultation
Cardiac: Regular Rhythm
GI: Soft and Tender
Genito-urinary: No Costovertebral Tender
Musculoskeletal: No Clubbing
Neuro: Awake, Alert and No Motor Deficits
Hematologic / Lymphatic: No Lymphadenopathy
Psych: Calm
Data Reviewed
-
Labs: Labs Reviewed by me and Discussed with Physician
[2024-03-12 16:15] LABS: Glucose - Point of Care 214 mg/dl (70-99)
[2024-03-12] MEDS: NOVOLOG FLEXPEN-MODERATE RESISTANCE 3 UNITS SC (16:19)
[2024-03-12] MEDS: NOVOLOG MIX 70/30 FLEXPEN 20 UNITS SC (16:20)
[2024-03-12] MEDS: LOVENOX 40 MG SC (17:37)
[2024-03-12] MEDS: 0.45% NACL with KCL 20 MEQ 1000 IV (18:27)
--- NOTE | 2024-03-12 18:38 | PTCARENOTE ---
Admin Novolog mix 70/30 and Novolog flex pen mod resistance prior to dinner per orders- see <AR. Insulin gtt off 1H s/p SC insulin admin per orders- see flow sheet. IVF orders changed to 1/2 NSS w KCL 20mew @ 100mL/hr, infusing via #20 R AC.
Claudia notified of when insulin infusion off and further orders received to downgrade to m/s level of care. Pt. updated on plan of care. Call don in reach.
[2024-03-12] MEDS: COLACE PO (20:06)
--- NOTE | 2024-03-12 20:12 | PTCARENOTE ---
Rec'd pt resting on chair, comfortable, VSS, RA, lungs decr in bases, sat 97, + bowel sounds, no bm , abd obese, soft, brando diet, voiding in bathroom
[2024-03-12 21:50] LABS: Glucose - Point of Care 198 mg/dl (70-99)
[2024-03-13 04:00] VITALS: BP 150/102
[2024-03-13] MEDS: 0.45% NACL with KCL 20 MEQ 1000 IV ×2 (04:21→14:30)
[2024-03-13 04:33] LABS: % Basophils 0.5 % (0-2); % Immature Granulocytes 1.6 % (0-0.5); % Lymphocytes 17.6 % (20.5-51.1); % Monocytes 8.6 % (1.7-9.3); % Neutrophils 69.7 % (42.2-75.2); Absolute Basophils 0.1 10^3/uL (0-0.2); Absolute Eosinophils 0.2 10^3/uL (0-0.7); Absolute Immature Granulocytes 0.2 10^3/uL (0-0.05); Absolute Lymphocytes 1.9 10^3/uL (1.2-3.4); Absolute Monocytes 0.9 10^3/uL (0.1-0.6); Absolute Neutrophils 7.5 10^3/uL (1.4-6.5); Hematocrit 37.9 % (39.0-52.0); Mean Corp Hgb Conc. 34.3 g/dL (33.0-37.0); Mean Corpuscular Hgb 28.3 pg (27.0-31.0); Mean Corpuscular Volume 82.4 fL (80.0-94.0); Mean Platelet Volume 11.3 fL (7.4-10.4); Nucleated Red Blood Cells % 0 % (-); Platelet Count 208 10^3/uL (130-400); Red Cell Dist. Width 13.5 % (11.5-14.5); White Blood Cell Count 10.8 10^3/uL (4.8-10.8)
[2024-03-13 04:56] LABS: ALT (SGPT) 93 U/L (0-50); AST (SGOT) 134 U/L (17-59); Albumin 2.5 g/dl (3.5-5.0); Alkaline Phosphatase 227 U/L (38-126); Blood Urea Nitrogen 8 mg/dl (9-20); Calcium 8.2 mg/dl (8.4-10.2); Carbon Dioxide 21 mmol/L (22-30); Chloride 105 mmol/L (98-107); Estimated Creatinine Clearance > 125 ml/min; Glucose 192 mg/dl (70-99); Lipase 1203 U/L (23-300); Magnesium 1.8 mg/dl (1.6-2.3); Sodium 137 mmol/L (135-145); Total Bilirubin 0.7 mg/dl (0.2-1.3); Total Protein 5.5 g/dl (6.3-8.2); eGFR > 60.00
--- NOTE | 2024-03-13 05:31 | PTCARENOTE ---
nauseated, vomited 'yellow liquid' in bathroom, Aviva, MAGAZINE KEEPER aware, compazine 5mg iv given
[2024-03-13] MEDS: COMPAZINE 5 MG IV (05:32)
--- NOTE | 2024-03-13 05:56 | PTCARENOTE ---
No further nausea
[2024-03-13 07:03] VITALS: BP 146/97
[2024-03-13 07:17] LABS: Glucose - Point of Care 180 mg/dl (70-99)
[2024-03-13] MEDS: COLACE PO ×2 (07:29→19:46)
[2024-03-13] MEDS: MIRALAX PO (07:29)
--- NOTE | 2024-03-13 08:00 | PTCARENOTE ---
Received patient from rice cleaning machine tender. patient is AAOx4. Patient is on room air. medsurg off monitor. patient had some nausea and vomiting, rice cleaning machine tender RN administered compazine. Reviewed labs and tiger texted Dr. Cochran. Patient is now written
for clear liquid diet. primarily wolof speaking but can make needs known. ambulates into bathroom. orders reviewed
[2024-03-13] MEDS: NOVOLOG FLEXPEN-MODERATE RESISTANCE SC (08:35)
[2024-03-13] MEDS: NOVOLOG MIX 70/30 FLEXPEN 20 UNITS SC (08:36)
--- NOTE | 2024-03-13 08:53 | CM ---
Patient seen at bedside in chair. Patient states he is feeling ok. Per nursing patient with further vomiting this am. CM will continue to work with family to complete documentation for Elo Pena. CM will continue to follow for discharge planning
needs.
Plan; home with Miriam and Elo Pena to follow
[2024-03-13] MEDS: NOVOLOG FLEXPEN-MODERATE RESISTANCE 1 UNITS SC (09:42)
[2024-03-13 10:01] LABS: Glucose - Point of Care 190 mg/dl (70-99)
[2024-03-13] MEDS: NOVOLOG FLEXPEN-MODERATE RESISTANCE 5 UNITS SC (12:27)
[2024-03-13 12:37] LABS: Glucose - Point of Care 255 mg/dl (70-99)
--- NOTE | 2024-03-13 12:51 | PN.DE.MGMTRT ---
Insulin Management
- -
03/13/2024: Diabetes Management Follow up:
23 year old male with no PMH, who presented to the ED with progressive polydipsia and polyuria associated with abd pain and vomiting.
Serum Glucose on admission was 851, he was noted for DKA with a GAP if 26 and acute pancreatitis with hepatomegaly and diffuse fatty infiltration of the liver.
Pt was started on DKA protocol and transferred to the ICU for management. AC 13.1%, Cr 1.4-->1.3, eGFR >60.
States he recently migrated from [facility].
Says he is currently employed with limited income, has no health insurance and lives with his cousin, the only family member in the .
Pt awake, A/O x3, out of bed in chair, offers no complaints. Able to discuss diabetes mgt, although questionable how much he understands due to language barrier will use language ipad for teaching. Patient had episode of vomiting this AM, Lipase
elevated, 1203, diet now back to clear liquids.
Pt transitioned off DKA protocol on 03/12 transitioned off insulin infusion again. Patient received 20 units 70/30 with dinner with 1800 calorie LO-FAT diet.
03/12 fasting glucose 190, received 20 units 70/30, pre lunch glucose 255. Requested nurse tt me pre dinner glucose, may increase 70/30 dose based on glucose.
Pt received extensive diabetes education- Monitor and insulin instructions this 03/11 by Landen Torres- see education note. Will reinforce in AM.
Diabetes History
- -
Type of Diabetes: 2 requiring insulin
Pre-Admission Diabetes Regimen
03/13/24
04:18
Creatinine 0.7
Lab Results
Hemoglobin A1c 13.1 % (4.0-5.6) H 03/08/24 03:51
Insulin Pump Settings
IP Diabetes Regimen
03/12/24 03/12/24 03/12/24
13:12 14:00 15:04
Glucose
POC Glucose 235 H 256 H 226 H
03/12/24 03/12/24 03/13/24
16:04 21:38 04:18
Glucose 192 H
POC Glucose 214 H 198 H
03/13/24 03/13/24 03/13/24
07:06 09:42 12:26
Glucose
POC Glucose 180 H 190 H 255 H
Patient Education
[2024-03-13 13:19] VITALS: BP 131/94
--- NOTE | 2024-03-13 14:38 | PTCARENOTE ---
attempted to call report to 4W. Awaiting call back from RN.
--- NOTE | 2024-03-13 15:28 | PTCARENOTE ---
patient arrived via wheelchair from ICU to 4W. pt is pleasant, AAOx3, no complaints offered at this time. pt walked into room from wheelchair. continue to monitor pt during shift
[2024-03-13 15:48] VITALS: BP 139/79
[2024-03-13 17:02] LABS: Glucose - Point of Care 205 mg/dl (70-99)
[2024-03-13] MEDS: NOVOLOG MIX 70/30 FLEXPEN SC (17:21)
[2024-03-13] MEDS: LOVENOX 40 MG SC (17:30)
[2024-03-13] MEDS: NOVOLOG FLEXPEN-MODERATE RESISTANCE 3 UNITS SC (18:00)
[2024-03-13] MEDS: NOVOLOG MIX 70/30 FLEXPEN 25 UNITS SC (18:01)
--- NOTE | 2024-03-13 19:15 | W.PN.HOSP.TC ---
Addendum entered and electronically signed by Gabrielle Cochran MD 03/13/24 21:03:
I saw and evaluated the patient independently. I reviewed the resident�s note and agree with findings and plan as documented by Dr. Taylor.
GENERAL: well developed, well nourished, male in no apparent distress
HEENT: NC/AT--no O2 requirements
HEART: regular rate and rhythm, +S1, +S2
LUNGS : clear to auscultation bilaterally
ABDOM: soft, nontender in midepigastric area, distended, positive bowel sounds
EXT: no cyanosis, clubbing, or edema
NEUROLOGIC: grossly intact
Diabetic Ketoacidosis--resolved--new onset DM with HGB A1C 13.1--was on insulin drip with closed AGAP, reopened gap back on insulin drip, now back to SC insulin-- apprec help of DM HARD HAT DIVER for transition back to SC insulin--anticipate d/c in AM
Acute Pancreatitis--US without gallstones, no significant ETOH use (6 beers every 2 months)--triglycerides not high enough to cause pancreatitis--not on meds--apprec GI--back to NPO/IVF with increased AGAP--- CT scan showed extensive peripancreatic
edema consistent with acute pancreatitis--Lipase levels over 4000 on admission-- advance diet to low fat/DM
Fatty liver --likely due to diet and DM--needs diet education
Leukocytosis--likely reactive-- wbc is downtrending from admission
Hypernatremia--- Corrected hypernatremia was 160 on admission taking into account patients hyperglycemia--improved with IVF and DKA treatment
DVT proph
code status -- FULL CODE
Original Note:
Today's Communication/Plan
-
introduce low fat diet
monitor glucose levels
repeat cmp
Assessment / Plan
Assessment / Plan
IMPRESSION
A 23y/M with working diagnosis of DKA/ Acute Pancreatitis.
Anion Gap closed
Appears comfortable
ASSESSMENT
DKA
ACUTE PANCREATITIS
PLAN
#1 DIABETIC KETOACIDOSIS
Anion Gap 11
CMP 4 hourly
Monitor Glucose levels and Anion Gap
Clear liquid diet
Can introduce low fat diet once patient is able to tolerate
#2 Acute Pancreatitis
On admission Lipase 4000, 03/10/2024 lipase 920
elevated lfts and lipase (1203) 03/13
Passing gas and had bowel movements today
repeat cmp
dvt PPX: LOVENOX
FULL CODE
Anticipated Discharge: 24 - 48 hours
Subjective/Interval History
-
Date of Service: March 13, 2024
Udall a bit nauseous over night.One episode of vomiting in the morning,
Objective Data
-
Vital Signs:
Vital Signs
Temp Pulse Resp BP Pulse Ox
98.1 F 93 18 139/79 98
03/13/24 15:48 03/13/24 15:48 03/13/24 15:48 03/13/24 15:48 03/13/24 15:48
I&O
03/12/24 03/13/24 03/14/24
06:59 06:59 06:59
Intake Total 4099 / 4302 3329 / 3429 1040 / 1040
Balance 4099 / 4302 3329 / 3429 1040 / 1040
Review of Systems
-
All other systems: Reviewed and negative
Physical Exam
-
General: Well Developed, Well Nourished, No Apparent Distress and Comfortable
HEENT: Normocephalic and Atraumatic
Respiratory: Clear to Auscultation
Cardiac: Regular Rhythm and S1/S2
GI: Soft, Nontender and Normal Bowel Sounds
Genito-urinary: No Costovertebral Tender
Musculoskeletal: No Clubbing, No Cyanosis and No Edema
Skin: Warm and Dry
Neuro: Awake, Alert, Oriented and No Motor Deficits
Hematologic / Lymphatic: No Lymphadenopathy
Psych: Calm
[2024-03-13 21:09] LABS: Glucose - Point of Care 198 mg/dl (70-99)
[2024-03-13 23:03] VITALS: BP 117/77
[2024-03-14] MEDS: 0.45% NACL with KCL 20 MEQ 1000 IV (00:28)
[2024-03-14 07:00] VITALS: BP 136/84
[2024-03-14 08:05] LABS: Glucose - Point of Care 155 mg/dl (70-99)
[2024-03-14 08:07] LABS: Hematocrit 35.5 % (39.0-52.0); Hemoglobin 12.2 g/dL (13.0-18.0); Mean Corp Hgb Conc. 34.4 g/dL (33.0-37.0); Mean Corpuscular Hgb 27.5 pg (27.0-31.0); Mean Platelet Volume 11.5 fL (7.4-10.4); Platelet Count 268 10^3/uL (130-400); Red Blood Cell Count 4.44 10^6/uL (4.70-6.10); Red Cell Dist. Width 13.5 % (11.5-14.5); White Blood Cell Count 11.7 10^3/uL (4.8-10.8)
[2024-03-14] MEDS: MIRALAX PO (08:20)
[2024-03-14] MEDS: COLACE PO (08:20)
[2024-03-14] MEDS: NOVOLOG MIX 70/30 FLEXPEN 25 UNITS SC (08:21)
[2024-03-14] MEDS: NOVOLOG FLEXPEN-MODERATE RESISTANCE 1 UNITS SC ×2 (08:23→12:27)
[2024-03-14 08:51] LABS: ALT (SGPT) 73 U/L (0-50); AST (SGOT) 66 U/L (17-59); Albumin 2.4 g/dl (3.5-5.0); Alkaline Phosphatase 226 U/L (38-126); Blood Urea Nitrogen 9 mg/dl (9-20); Calcium 8.1 mg/dl (8.4-10.2); Carbon Dioxide 22 mmol/L (22-30); Chloride 104 mmol/L (98-107); Estimated Creatinine Clearance > 125 ml/min; Glucose 173 mg/dl (70-99); Lipase 1269 U/L (23-300); Magnesium 1.8 mg/dl (1.6-2.3); Potassium 3.7 mmol/L (3.5-5.1); Sodium 136 mmol/L (135-145); Total Bilirubin 0.6 mg/dl (0.2-1.3); Total Protein 5.4 g/dl (6.3-8.2); eGFR > 60.00
--- NOTE | 2024-03-14 11:14 | W.DCSUMMARY ---
Addendum entered and electronically signed by Gabrielle Cochran MD 03/14/24 13:51:
Read, reviewed, and agree. See same day progress note for additional details. Time spent coordinating care, DC planning, review of DC plan of care with resident, transition of care, review of records in EMR, med rec, consults, notes, d/w
consultants, nursing, family, and CM = 33 minutes.
In regards to the patient's new diagnosis of type II diabetes/DKA, patient was admitted to the intensive care unit and started on insulin drip with IV fluids. Serial lab draws (BMPs) were checked and his anion gap was followed. Once anion gap was
closed, he was transitioned to subcutaneous insulin and diet started. Unfortunately his anion gap opened again and had to go back on IV insulin and back to n.p.o. status. Once his gap was closed, he was then transitioned back to 7030 subcutaneous
insulin at higher doses than previously and he has stayed out of DKA since that time. He is tolerating a diet. He was seen by the diabetic nurse practitioner and extensive education was provided to him. Medications were sent to the [facility]
pharmacy and patient is to follow-up with the free clinic.
Original Note:
Discharge Summary
Discharge Data
Date of Admission: 03/07/24
Date of Discharge: 03/14/24
-
Pending Results: No
Hospital Course
Discharging Physician : Dr. Cochran
Principal Discharge diagnosis : DKA, Acute Pancreatitis, Fatty Liver,Leukocytosis
Hospital Course : A 23 year old male with no history of diabetes, presented to ER with new onset polydipsia, polyuria and epigastric pain. In addition he felt tired and had one episode of vomiting in the morning of presentation.He drank 6 beers over
6 months and is non smoker.Family history not pertinent. He drank 6 beers over 6 months and is non smoker.Family history not pertinent..He had tenderness in his epigastric region.
He was diagnosed as a case of diabetic ketoacidosis based on elevated blood sugar levels(851) and elevated anion gap metabolic acidosis(26).
Important imaging findings :
Ct abdomen was done in the emergency acute pancreatitis with peripancreatic edema, and hepatomegaly with diffuse fatty infiltration of the liver.
Ultrasound abdomen showed no gallstones
Treatment course
Patient treated for diabetic ketoacidosis with IV insulin infusion and fluids as per protocol. For acute pancreatitis supportive management was done .NPO, bowel rest,fluids and pain management.
Extensive education about his diagnosis and diabetes management was provided
Discharge Plan
-
Patient Disposition: Home (Routine Discharge)
Discharge Diagnosis/Procedures: diabetic ketoacidosis, acute pancreatitis, fatty liver, hyponatremia, leukocytosis
Condition: Good
Diet: Low Fat and Diabetic, Carb Controlled
Activity: As tolerated
Driving Restrictions: As prior to admission
Bathing Restrictions: None
Referrals:
NONE,* [Family Provider] - in less than 1 week (follow up in the free clinic)
Prescriptions:
New
(DME) Contour Next Test Strips Strip
Qty: 200 0RF
Rx Instructions:
Test blood sugar before each meal and HS As Directed
Novolin 70-30 FlexPen U-100 100 unit/mL (70-30) Insulin Pen
25 unit SC BID@0800,1700 Qty: 5 1RF
(DME) pen needle, diabetic [BD Ultra-Fine Liseth Pen Needle] 32 gauge x 5/32' Needle
Qty: 100 0RF
Rx Instructions:
As Directed
(DME) lancets [Color Lancets] 21 gauge Misc
Qty: 200 0RF
Rx Instructions:
Test blood sugar before each meal and HS As Directed
Discharge Orders:
Discharge Patient (As Directed); Ordered 03/14/24
Ordered By: Dotty Taylor
Discharge Date and Time
Print Language: UPPER SORBIAN
--- NOTE | 2024-03-14 11:38 | W.PN.HOSP.TC ---
Addendum entered and electronically signed by Gabrielle Cochran MD 03/14/24 13:56:
I saw and evaluated the patient independently. I reviewed the resident�s note and agree with findings and plan as documented by Dr. Taylor.
GENERAL: well developed, well nourished, male in no apparent distress
HEENT: NC/AT--no O2 requirements
HEART: regular rate and rhythm, +S1, +S2
LUNGS : clear to auscultation bilaterally
ABDOM: soft, nontender in midepigastric area, distended, positive bowel sounds
EXT: no cyanosis, clubbing, or edema
NEUROLOGIC: grossly intact
Diabetic Ketoacidosis--resolved--new onset DM with HGB A1C 13.1--was on insulin drip with closed AGAP, reopened gap back on insulin drip, now back to SC insulin-- apprec help of DM REWIND OPERATOR for transition back to SC insulin--OK for d/c
Acute Pancreatitis--resolved--US without gallstones, no significant ETOH use (6 beers every 2 months)--triglycerides not high enough to cause pancreatitis--not on meds--apprec GI-- CT scan showed extensive peripancreatic edema consistent with acute
pancreatitis--Lipase levels over 4000 on admission--tolerating low fat diet
Fatty liver --likely due to diet and DM--needs diet education
Leukocytosis--likely reactive-- wbc is downtrending from admission
Hypernatremia--- Corrected hypernatremia was 160 on admission taking into account patients hyperglycemia--improved with IVF and DKA treatment--resolved
DVT proph
code status -- FULL CODE
Original Note:
Today's Communication/Plan
-
discharge
Assessment / Plan
Assessment / Plan
IMPRESSION
A 23-year-old obese male [place] immigrant with no significant past medical history diagnosed with DKA and severe pancreatitis
ASSESSMENT
Diabetic ketoacidosis/ Diabetes mellitus
Acute Pancreatitis
PLAN
Diabetic ketoacidosis
Patient has stable glucose levels
Successfully transitioned to subcutaneous insulin
able to tolerate food
Anion gap closed
Acute pancreatitis
pain resolved and wbc count normal
Able to eat and tolerate food
DVT prophylaxis-on Lovenox
full code
Anticipated Discharge: Today
Subjective/Interval History
-
Date of Service: March 14, 2024
No active issues. patient feels good, vomiting and abdominal pain resolved. patient wants to go home.
Objective Data
-
Labs:
Laboratory Results
03/14/24
06:43
WBC 11.7 H
Hgb 12.2 L
Hct 35.5 L
Plt Count 268 D
Sodium 136
Potassium 3.7
Chloride 104
Carbon Dioxide 22
BUN 9
Creatinine 0.8
Glucose 173 H
Calcium 8.1 L
Total Bilirubin 0.6
AST 66 H
ALT 73 H
Alkaline Phosphatase 226 H
Vital Signs:
Vital Signs
Temp Pulse Resp BP Pulse Ox
98.5 F 102 24 136/84 97
03/14/24 07:00 03/14/24 07:00 03/14/24 07:00 03/14/24 07:00 03/14/24 07:00
I&O
03/13/24 03/14/24 03/15/24
06:59 06:59 06:59
Intake Total 3329 / 3429 1040 / 1040
Balance 3329 / 3429 1040 / 1040
Review of Systems
-
All other systems: Reviewed and negative
Physical Exam
-
General: Well Developed, Well Nourished, No Apparent Distress and Comfortable
HEENT: Normocephalic, Atraumatic and Moist Mucous Membranes
Respiratory: Clear to Auscultation
Cardiac: Regular Rhythm and S1/S2
GI: Soft, Nontender and Normal Bowel Sounds
Genito-urinary: No Costovertebral Tender
Musculoskeletal: No Clubbing, No Cyanosis and No Edema
Skin: Warm and Dry
Neuro: Awake, Alert and Oriented
Hematologic / Lymphatic: No Lymphadenopathy
Psych: Calm
[2024-03-14 11:39] LABS: Glucose - Point of Care 174 mg/dl (70-99)
--- NOTE | 2024-03-14 12:07 | CM ---
Patient for discharge home today. CM requested patient go to [facility] [address] to make appointment. inclusion paraeducator provided information for patient in [place]. CM will continue to follow for discharge planning needs.
Plan; home with [facility]
--- NOTE | 2024-03-14 12:26 | PN.DE.MGMTRT ---
Insulin Management
- -
03/14/2024: Diabetes Management Follow up:
23 year old male with no PMH, who presented to the ED with progressive polydipsia and polyuria associated with abd pain and vomiting.
Serum Glucose on admission was 851, he was noted for DKA with a GAP if 26 and acute pancreatitis with hepatomegaly and diffuse fatty infiltration of the liver.
Pt was started on DKA protocol and transferred to the ICU for management. AC 13.1%, Cr 1.4-->1.3, eGFR >60.
States he recently migrated from [facility].
Says he is currently employed with limited income, has no health insurance and lives with his cousin, the only family member in the .
Pt awake, A/O x3, resting in bed, offers no complaints. Able to discuss diabetes mgt, although questionable how much he understands due to language barrier will use language ipad for teaching. Patient has had no further vomiting, consuming diet
without difficulty.
03/14 fasting glucose 155, received 25 units 70/30 with dinner last evening. 70/30 @ breakfast today 25 units, Pre lunch glucose stable @ 174
Pt received extensive diabetes education- Monitor and insulin instructions this 03/11 by Landen Torres- see education note.
Patient for discharge today, prescriptions for novolin 70/30 and test strips and lancets to be obtained from [facility] in ambulatory orders.
Reinforced the importance of taking insulin and testing glucose.
Diabetes History
- -
Type of Diabetes: 2 requiring insulin
Pre-Admission Diabetes Regimen
03/14/24
06:43
Creatinine 0.8
Lab Results
Hemoglobin A1c 13.1 % (4.0-5.6) H 03/08/24 03:51
Insulin Pump Settings
IP Diabetes Regimen
03/13/24 03/13/24 03/13/24
12: 17:00 21:08
Glucose
POC Glucose 255 H 205 H 198 H
03/14/24 03/14/24 03/14/24
06:43 08:03 11:37
Glucose 173 H
POC Glucose 155 H 174 H
Patient Education
[2024-03-14 13:32] VITALS: BP 129/83
--- NOTE | 2024-03-14 13:49 | W.DCSUMMARY ---
Discharge Summary
Discharge Data
Date of Admission: 03/07/24
Date of Discharge: 03/14/24
-
Pending Results: No
Hospital Course
Discharging Physician :
Disposition : Home
Principal Discharge diagnosis : Diabetic ketoacidosis , acute pancreatitis
Hospital Course :
23-year-old obese male [place] immigrant with no significant past medical history diagnosed with DKA and severe pancreatitis presented with polyuria and polydipsia,feeling tired and pain in epigastric region.He had one episode of vomiting in
the morning of presentation to the emergency.He has history of drinking 6 beers over 2 months and is a non smoker. No history of any shortness of breath, uti,cough. She was diagnosed with acute pancreatitis based on her ct abdomen findings that
showed peripancreatic fluid and fatty liver along with lipase level of 4000. It was managed conservatively with bowel rest and fluids.
He had a glucose level of 851 and anion gap of 26,so he was managed as per protocol. His HbA1c was 13. Once anion gap closed and glucose levels stabilized he was shifted to subcutaneous insulin. At the time of discharge he was tolerating oral diet
and his insulin dose was adjusted.
Important imaging findings :
CT abdomen
1). Acute pancreatitis with extensive peripancreatic edema
2). Hepatomegaly with diffuse fatty infiltration of the liver
Discharge Plan
-
Patient Disposition: Home (Routine Discharge)
Discharge Diagnosis/Procedures: diabetic ketoacidosis, acute pancreatitis, fatty liver, hyponatremia, leukocytosis
Condition: Good
Diet: Low Fat and Diabetic, Carb Controlled
Activity: As tolerated
Driving Restrictions: As prior to admission
Bathing Restrictions: None
Referrals:
NONE,* [Family Provider] - in less than 1 week (follow up in the free clinic)
Prescriptions:
New
(DME) Contour Next Test Strips Strip
Qty: 200 0RF
Rx Instructions:
Test blood sugar before each meal and HS As Directed
Novolin 70-30 FlexPen U-100 100 unit/mL (70-30) Insulin Pen
25 unit SC BID@0800,1700 Qty: 5 1RF
(DME) pen needle, diabetic [BD Ultra-Fine Liseth Pen Needle] 32 gauge x 5/32' Needle
Qty: 100 0RF
Rx Instructions:
As Directed
(DME) lancets [Color Lancets] 21 gauge Misc
Qty: 200 0RF
Rx Instructions:
Test blood sugar before each meal and HS As Directed
Discharge Orders:
Discharge Patient (As Directed); Ordered 03/14/24
Ordered By: Dotty Taylor
Discharge Date and Time
Discharge Date/Time: 03/14/24 14:06
Print Language: ANDORRAN
== END 2024-03-14 14:06 | disposition home or self-care (01) | DRG 438 ==
LOC: 4 WEST ACU 18:01
PROVIDERS: Nurse Practitioner; Nurse Practitioner Acute Care; Nurse Practitioner Family; Registered Nurse; Student in an Organized Health Care Education/Training Program; ADMITTING PHYSICIAN Internal Medicine; ATTENDING PHYSICIAN Internal Medicine; EMERGENCY PHYSICIAN Student in an Organized Health Care Education/Training Program; OTHER PHYSICIAN Internal Medicine Critical Care Medicine; OTHER PHYSICIAN Student in an Organized Health Care Education/Training Program
DX: K85.90 Acute pancreatitis without necrosis or infection, unspecified (principal); E11.10 Type 2 diabetes mellitus with ketoacidosis without coma; E87.0 Hyperosmolality and hypernatremia; D75.1 Secondary polycythemia; K76.0 Fatty (change of) liver, not elsewhere classified; E66.9 Obesity, unspecified; Z68.34 Body mass index [BMI] 34.0-34.9, adult; Z87.891 Personal history of nicotine dependence
CPT/HCPCS: 71045; 74177; 76705; 80048; 80053; 82010; 82150; 82805; 82962; 83036; 83690; 83735; 84100; 84478; 85025; 85027; 85610; 85730; 86140; 93005; 96361; 96374; 96375; 99291; 99406; J3480; Q9967